=== PATIENT | female | born 1940 | race Caucasian/White ===

== ENCOUNTER 2019-05-14 20:29 | Emergency (ER) | payer MEDICARE, OTHER, SELFPAY ==
[2019-05-14 20:30] VITALS: BP 143/72; PULSE 89; RESP 19; TEMP 37.1; O2SAT 97; BMI 19.1
[2019-05-14 21:01] VITALS: BP 118/71; PULSE 76; RESP 18; O2SAT 98
--- NOTE | 2019-05-14 21:08 | EKG12_ITS ---
Test Reason : PALPATIONS Blood Pressure : / mmHG Vent. Rate : 091 BPM Atrial Rate : 091 BPM P-R Int : 144 ms QRS Dur : 138 ms QT Int : 392 ms P-R-T Axes : 083 039 102 degrees QTc Int : 482 ms Sinus rhythm with occasional Premature ventricular complexes and Premature atrial complexes Left bundle branch block Abnormal ECG Confirmed by DARRELL RUTHERFORD, PETER ([id number]), film or videotape editor ULISES RAMSEY ([id number]) on 05/17/2019 1:05:16 PM Referred By: KIKO Confirmed By:PETER RAMÍREZ MD
[2019-05-14 21:26] LABS: Mean Corp Hgb Conc 32.3 g/dL (32-36); Mean Corpuscular Hgb 27.2 pg (27.0-32.0); Mean Corpuscular Volume 84.5 fL (81-99); Mean Platelet Vol. 9.4 fl (6.2-12.0); Platelet Count 203 K/mm3 (150-450); RBC Distribution Width CV 15.6 % (11.6-14.6); RBC Distribution Width SD 47.8 fl (35.1-43.9); Red Blood Count 3.67 M/mm3 (4.2-5.4); White Blood Count 10.2 K/mm3 (4.4-11.0)
--- NOTE | 2019-05-14 21:27 | ED.DCSUM_ITS ---
History of Present Illness Chief Complaint: Palpitations Informant: Patient, Family Onset: Yesterday Context: Sudden Onset Timing: Intermittent Quality: Irregular heartbeat Location: Chest Current Severity: Presently no palpitations Maximum Severity: Moderate Worsened by: Nothing Relieved by: Nothing Associated Symptoms: No associated chest pain, shortness of breath, nausea vomiting or diaphores Narrative: Patient is an elderly woman who has history of aortic stenosis. She states the aortic stenosis has gotten worse and she has lightheadedness with rising from a sitting position quickly and complains of dyspnea with increased activity. She presents because of palpitations. She denies hot or cold intolerance. She denies hematemesis. Denies black or maroon stool. She denies fever chills. She denies leg pain, swelling or discoloration. Prior similar symptoms: No Recent Illness/Hospitalization: No - Past Medical History (1) History of aortic stenosis Status: Acute (2) History of hypertension Status: Acute Past Medical History - Allergies and Home Meds Allergies/Adverse Reactions: Allergies colestipol Allergy (Verified 05/14/19 20:40) Unknown aspirin Adverse Reaction (Verified 05/14/19 20:40) Upset Stomach doxycycline Adverse Reaction (Verified 05/14/19 20:40) Unknown meloxicam Adverse Reaction (Verified 05/14/19 20:40) Upset Stomach metoclopramide [From Reglan] Adverse Reaction (Verified 05/14/19 20:40) Other niacin Adverse Reaction (Verified 05/14/19 20:40) Other NSAIDS (Non-Steroidal Anti-Inflamma Adverse Reaction (Verified 05/14/19 20:40) Upset Stomach PONCE-2 INHIBITOR Allergy (Uncoded 05/14/19 20:40) Unknown Primary Care Physician: Fadia Reese MD [Primary Care Provider] - Prior records reviewed: No Surgical History: noncontributory Lives: Spouse/ Significant Other Smoking Status: Never smoker Alcohol: None Drugs: None Review of Systems General: Denies: Chills, Fever, Sweats Eyes: Denies: Visual changes - bilaterally, Diplopia ENT: Denies: Rhinorrhea, Sore throat Cardiovascular: Reports: Palpitations. Denies: Chest pain, Heart racing Respiratory: Reports: Dyspnea on exertion - Chronic for 1 year. Denies: Dyspnea, Cough, Orthopnea, Paroxysmal nocturnal dyspnea Gastrointestinal: Denies: Abdominal pain, Nausea, Vomiting, Diarrhea, Melena, Hematochezia Genitourinary: Denies: Dysuria, Hematuria, Frequency Musculoskeletal: Denies: Myalgias, Arthralgias, Neck pain, Back pain, Extremity Pain Skin: Denies: Rash, Wounds Neurological: Denies: Headache, Weakness, Numbness Hematologic: Denies: Easy bruising, Easy bleeding Physical Exam Vital Signs/Narrative: Vital Signs Temp Pulse Resp BP Pulse Ox 05/14/19 21:01 76 18 118/71 98 05/14/19 20:30 98.7 F 89 19 H 143/72 H 97 Inital Vital Signs reviewed: Yes General: Well nourished, Well developed, No Acute Distress Head: Normocephalic, Atraumatic Eyes: Perrl, EOMI ENT: Moist mucous membranes, No rhinorrhea Neck: Supple, Nontender Cardiovascular: Normal S1, Normal S2, Irregular, Murmur Respiratory: No distress, CTA bilaterally, Chest nontender Abdomen: Soft, Nontender, Nondistended, Normal bowel sounds Back: Nontender, Normal Inspection Extremities: Nontender, No edema. Negative for: Calf Tenderness Skin: Normal color, No rash Neurological: Alert, Oriented x3, Cranial nerves II-XII grossly intact, Normal Strength, Normal Sensation Psychological: Normal affect, Normal Mood Diagnostic/Tx/Re-eval Laboratory Results 05/14/19 05/14/19 21:20 21:20 WBC 10.2 RBC 3.67 L Hgb 10.0 L Hct 31.0 L MCV 84.5 MCH 27.2 MCHC 32.3 RDW Std Deviation 47.8 H RDW Coeff of Rosie 15.6 H Plt Count 203 MPV 9.4 Troponin I < 0.015 - Rhythm Strip Rhythm Strip: Sinus Rhythm Rate: 88 Ectopy: PVC(s) - EKG Initial EKG Interpretation: Sinus Rhythm - Jugular rate 91. NH interval 144 ms. QS duration 138 and morphology of the left anterior fascicular block. QT interval 392 ms. [place] to left. There are premature ventricular beats noted. - Medical Decision Making Patient presents with palpitation. She does have frequent PVCs on the monitor. Will obtain basic metabolic panel to assess electrolytes. Since symptoms started yesterday we will obtain the EKG as well as troponin. ED Disposition - Plan for ED Patient: Disposition: Home or Assisted Living Diagnosis: Ventricular premature beats, Anemia, unspecified Instructions: Premature Ventricular Contractions Referrals: Fadia Reese MD [Primary Care Provider] - Anjum Henriquez MD [STAFF PHYSICIAN] - 1-2 Weeks
[2019-05-14 21:59] VITALS: BP 122/71; PULSE 95; RESP 14; O2SAT 97
[2019-05-14 22:03] VITALS: BP 117/65; PULSE 87; RESP 17; O2SAT 98
== END 2019-05-14 22:04 | disposition home or self-care (01) ==
PROVIDERS: Emergency Provider Emergency Medicine; Family Provider Internal Medicine; PCP Internal Medicine
DX: I49.3 Ventricular premature depolarization (principal); D64.9 Anemia, unspecified; I35.0 Nonrheumatic aortic (valve) stenosis; I44.4 Left anterior fascicular block
CPT/HCPCS: 84484; 85027; 93005; 99285; A4216

== ENCOUNTER 2020-02-27 18:12 | Inpatient (IN) | payer MEDICARE, OTHER, SELFPAY ==
[2020-02-27 18:12] VITALS: BP 128/67; PULSE 83; RESP 16; TEMP 36.3; O2SAT 100; BMI 16.2
--- NOTE | 2020-02-27 18:28 | CT_ITS ---
STUDY: CT ABDOMEN AND PELVIS WITH CONTRAST REASON FOR EXAM: Female, 80 years old. LUQ PAIN X 2 WEEKS, AORTIC AND MITRAL VALVE REPLACED DECEMBER 2019, HX WHIPPLE SX RADIATION DOSAGE (If Supplied By Facility): CTDIvol = ( 10.36 ) mGy, DLP = ( 477.67 ) mGycm TECHNIQUE: Transaxial images were obtained from the dome of the diaphragm to the symphysis pubis without oral contrast. Oral and amp; IV Gastrografin and amp; 100mL Isovue-300 was administered. Sagittal and coronal images were reconstructed. Individualized dose optimization techniques were used for this CT. COMPARISON: None. FINDINGS: Soft tissue density wedgelike pleural-based at the right base measures up to 1.8 cm. 2 mm nodule left base. The visualized portions of the heart demonstrate hardware in place. Extensive pneumobilia. There are surgical clips in the gallbladder fossa consistent with a prior cholecystectomy. Normal spleen. Pancreatic tail is unremarkable. Normal bilateral adrenal glands. Bilateral hydronephrosis and a markedly distended urinary bladder. Markedly distended stomach. The duodenum and proximal jejunum is also markedly distended. A high density linear object is seen within the lumen of the proximal small bowel and distal small bowel and colon appear relatively decompressed. Question pneumatosis within the distal small bowel. Moderate stool burden. There is non-visualization of the appendix. There is diffuse atherosclerotic calcification of the abdominal aorta with elongation and tortuosity, but without a demonstrated aneurysm. Normal inferior vena cava. Normal retroperitoneum. Distended urinary bladder. There is atrophy of the uterus. Normal abdominal wall. Normal osseous structures. CT/Abdomen/Pelvis WITH Contrast IMPRESSION: Findings concerning for high-grade small bowel obstruction with associated possible pneumatosis. Extensive pneumobilia. Question hardware/stent displaced within the small bowel lumen. Lung base findings including an area of solid nodular density measuring up to 1.8 cm recommend correlation with any prior imaging and or follow-up dedicated chest CT for further evaluation. Findings discussed with Dr. Marcano by Dr. Moraes on 02/27/2020 9:29 PM via telephone. Electronically Signed: Gerard Moraes, at 21:31 EDT Tel , Service support ,
--- NOTE | 2020-02-27 18:30 | EKG12_ITS ---
Test Reason : ABD PAIN Blood Pressure : / mmHG Vent. Rate : 085 BPM Atrial Rate : 085 BPM P-R Int : 142 ms QRS Dur : 136 ms QT Int : 404 ms P-R-T Axes : 017 021 233 degrees QTc Int : 480 ms Sinus rhythm with occasional and consecutive Premature ventricular complexes and Fusion complexes Left bundle branch block Abnormal ECG Confirmed by DARRELL RUTHERFORD, PETER ([id number]), assignment editor JAYMIE ZEPEDA ([id number]) on 02/29/2020 11:19:42 AM Referred By: RU Confirmed By:PETER RAMÍREZ MD
[2020-02-27 18:58] LABS: Absolute Lymphocyte Count 1.06 X10^3/uL (0.83-4.51); Absolute Neutrophil Count 6.9 X10^3/uL (2.0-7.7); Basophil# 0.02 X10^3/uL; Basophil% 0.2 % (0-1); Eosinophils% 1.1 % (0-5); Hematocrit 37.9 % (37-47); Lymphocyte # 1.06 X10^3/ul (4.0); Mean Corp Hgb Conc 31.7 g/dL (32-36); Mean Corpuscular Hgb 29.1 pg (27.0-32.0); Mean Corpuscular Volume 91.8 fL (81-99); Mean Platelet Vol. 9.2 fl (6.2-12.0); Monocyte# 0.79 X10^3/uL; Monocyte% 8.9 % (0-10); NRBC Flagged by Analyzer 0 % (0-5); Neutrophil # 6.85 X10^3/uL (2.7-7.7); Neutrophil % 77.3 % (47-70); Platelet Count 344 K/mm3 (150-450); RBC Distribution Width CV 14.5 % (11.6-14.6); Red Blood Count 4.13 M/mm3 (4.2-5.4); White Blood Count 8.9 K/mm3 (4.4-11.0)
--- NOTE | 2020-02-27 19:03 | ED.DCSUM_ITS ---
- ER Visit Summary Date of Service: 02/27/20 Chief Complaint: [Abdominal pain] History of Present Illness: The patient is a 80 F [presents to the emergency department with complaint of abdominal pain that started 2 weeks ago when she has had the pain off and on. The pain will usually subside after couple of hours. Today the pains been continuous and will go away. She describes it as upper abdomen and left upper quadrant. She is had no appetite today. She has had vomiting x3. She denies urinary symptoms. Last bowel movement was earlier this morning. She denies any blood in her stool or black tarry stools. She denies urinary symptoms. She is had no fever. Patient states that she had recent surgery at [facility] to have her aortic valve replaced and had a mitral valve repair and that was 2 months ago. Patient's had prior appendectomy, cholecystectomy, and a Whipple procedure. Patient with history of hypertension, high cholesterol, and A. fib. She is currently on Eliquis as well as Plavix. Patient currently rates her pain a 5 or 6 out of 10.] Physical Examination: [HEENT-PERRLA, EOMI. Cranial nerves II through XII grossly intact. TMs clear. Mucous membranes moist. No adenopathy. Cardiovascular-regular rate and rhythm without murmur or ectopy Lungs-clear to auscultation, chest wall stable without crepitus or subcu emphysema Abdomen-normoactive bowel sounds, soft. Patient has tenderness palpation over the epigastric region as well as the left upper quadrant with some guarding. There is no rebound, rigidity, or peritoneal signs. Extremities-intact ?4, normal range of motion, normal pulses, atraumatic] Test Results: [EKG obtained arrival shows sinus rhythm with a ventricular rate of 85 bpm with occasional PVCs. CBC with differential showed a white count 8.9, hemoglobin 12, hematocrit 38, platelets 344. Chemistries unremarkable other than a sodium 130. LFTs were unremarkable other than elevated alk phos of 181. Lipase was 41. Lactate was 1.2. Troponin was less than 0.015. CT scan of the abdomen pelvis with IV and p.o. contrast was ordered which showed findings concerning for high-grade small bowel obstruction with associated possible pneumatosis. Extensive pneumobilia. Question hardware/stents placed within the small bowel lumen. Lung base findings including an area solid nodular density measuring up to 1.8 cm recommend correlation with prior imaging and or follow-up dedicated CT chest.] Emergency Department Course and Treatment: [IV line was damaged. Patient was medicated with Zofran. Patient was medicated morphine and Phenergan for continu ed discomfort. Case was discussed with general surgeon on-call Dr. Jenn Dee. I was asked to admit patient to the hospitalist. An NG tube was placed to low intermittent suction.] Treatment Plan: [Admit] Disposition: [Admit] Impression: [Abdominal pain Small bowel obstruction Right lower lobe lung density-etiology uncertain] This note was generated with [employer] dictation software. It may contain incorrect words, spelling, and punctuation that were not noted in review of the chart prior to signing I was asked to admit patient to hospitalist. ED Disposition - Plan for ED Patient: Referrals: Fadia Reese MD [STAFF PHYSICIAN] -
[2020-02-27] MEDS: Ondansetron 4 MG/2 ML Vial IV (19:06)
[2020-02-27] MEDS: 0.9% Normal Saline 1,000 ML 125 ML IV (19:06)
[2020-02-27 19:20] LABS: ALB/GLOB Ratio 0.8 RATIO (0.9-2.4); AST(SGOT) 26 U/L (15-37); Alanine Aminotransfer ALT/SGPT 25 U/L (13-56); Albumin, Serum 3.5 g/dL (3.2-5.0); Alkaline Phosphatase 181 U/L (45-117); Anion Gap 6 (5-15); BUN 17 mg/dL (7-18); BUN/Creat Ratio 21.7 RATIO (10-20); Calcium,Total 9.5 mg/dL (8.5-10.1); Chloride 94 mmol/L (98-107); Creatinine, Serum 0.78 mg/dL (0.55-1.02); EST Glomerular Filtration Rate 75 mL/min (>60); Est Glom Filt Rate - Afr Amer 91 mL/min (>60); Estimated Creatinine Clearance 32.01 ml/min; Globulin 4.2 g/dL (2.2-4.2); Glucose 96 mg/dL (74-106); Lipase 41 U/L (73-393); Potassium 3.7 mmol/L (3.5-5.1); Protein, Total 7.7 g/dL (6.4-8.2); Sodium Level 130 mmol/L (136-145)
[2020-02-27] MEDS: Morphine 4 MG/ML Syringe IV (19:30)
[2020-02-27] MEDS: proMETHazine 25 MG/ML Syringe 6.25 MG IV (19:30)
[2020-02-27 19:50] LABS: Lactic Acid 1.2 mmol/L (0.4-1.9)
[2020-02-27 20:41] LABS: Bacteria 0 SEEN /hpf (None Seen); Mucous, Urine 0 SEEN /hpf (<or=2+); Red Blood Cells-Urine 0 SEEN /hpf (0-5); White Blood Cells 0 SEEN /hpf (0-5)
[2020-02-27 20:47] LABS: Color, Urine Straw (Yellow); Glucose, Dipstick Normal (Normal); Ketone-Dipstick Negative (Negative); Leukocyte Esterase-Dipstick Negative /ul (Negative); Nitrite-Dipstick Negative (Negative); Occult Blood-Urine Negative /ul (Negative); Protein-Dipstick Negative (Negative); Urine Bilirubin Dipstick Negative (Negative); Urine Clarity Clear (Clear); Urine Urobilinogen Normal (Normal)
[2020-02-27 21:19] LABS: Squamous Epithelial Cells - UA 0-5 SEEN /hpf (5-10)
--- NOTE | 2020-02-27 21:43 | PCM.HP.STD ---
Problem List (1) SBO (small bowel obstruction) Status: Acute (2) History of aortic stenosis Status: Acute (3) History of hypertension Status: Acute History of Present Illness Date of Admission: 02/27/20 Chief Complaint: abdominal pain The patient is a 80 year old F with a significant history of aortic stenosis status post aortic valve replacement with tissue; mitral valve repair; atrial fibrillation; pancreatic cyst status post Whipple procedure; appendectomy; and cholecystectomy who presents to the emergency department with 2-week history of progressively worsening left lower quadrant abdominal pain. Her pain is excruciating. Her pain is nonradiating. She describes her pain as cramps. She denies any aggravating or ameliorating factors to the pain. Associated with her symptoms is nausea and vomiting. Her last bowel movement was on the same day of presentation. Abdomen and pelvis CT at emergency department showed high-grade small bowel obstruction with associated possible pneumatosis and extensive pneumobilia. Past Medical History Medical History: Medical History (Last Reviewed 02/28/20 @ 01:[address] Noe Richmond MD) Aortic stenosis I35.0 Allergies colestipol Allergy (Verified 02/27/20 18:15) Unknown aspirin Adverse Reaction (Verified 02/27/20 18:15) Upset Stomach doxycycline Adverse Reaction (Verified 02/27/20 18:15) Unknown meloxicam Adverse Reaction (Verified 02/27/20 18:15) Upset Stomach metoclopramide [From Reglan] Adverse Reaction (Verified 02/27/20 18:15) Other niacin Adverse Reaction (Verified 02/27/20 18:15) Other NSAIDS (Non-Steroidal Anti-Inflamma Adverse Reaction (Verified 02/27/20 18:15) Upset Stomach PONCE-2 INHIBITOR Allergy (Uncoded 02/27/20 18:15) Unknown Home Medications: Ambulatory Orders Medication Instructions Recorded Albuterol Inhaler [Ventolin Hfa 2 puff INHALATION Q4H PRN PRN 02/27/20 (SP)] Apixaban [Eliquis] 5 mg PO BID 02/27/20 Brinzolamide/Brimonid Tart 1 drp RIGHT EYE BID 02/27/20 [Simbrinza 1%-0.2% Eye Drops] Calcium Carbonate [Calcium] 600 mg PO BID 02/27/20 Cholecalciferol (VIT D3) [Vitamin 2,000 unit PO DAILY 02/27/20 D] Clopidogrel Bisulfate [Clopidogrel] 75 mg PO DAILY 02/27/20 Ferrous Sulfate 2 tab PO BID 02/27/20 Fluticasone/Salmeterol [Advair 1 puff IH BID 02/27/20 100-50 Diskus] Lipase/Protease/Amylase [Charo Easley 2 ea PO TID 02/27/20 36,000 Units Capsule] Metoprolol Tartrate 50 mg PO BID 02/27/20 Montelukast [Singulair] 10 mg PO DAILY 02/27/20 Multivitamin with Minerals 1 ea PO DAILY 02/27/20 [Multiple Vitamin] Nitroglycerin 0.4 mg SL PRN PRN 02/27/20 Pantoprazole Sodium [Protonix] 40 mg PO BID 02/27/20 Pimecrolimus 1 applicatio TP BID PRN 02/27/20 Rosuvastatin Calcium 10 mg PO DAILY 02/27/20 metroNIDAZOLE 0.75% [Metrogel] 70 applic TOPICAL BID 02/27/20 Surgical History: appendectomy, cholecystectomy, - - 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 Smoking Status: Never smoker Alcohol: None - *Family History Maternal History Items: Heart Disease Paternal History Items: Stroke Review of Systems Constitutional: Reports: Anorexia. Denies: Chills, Fever, Weight Change HEENT: Denies: Head Aches, Sinus Congestion, Sinus Drainage Cardiovascular: Denies: Chest Pain, Palpitations Respiratory: Denies: Cough, Shortness of breath at rest, Sputum production Gastrointestinal: Reports: Abdominal Pain, Nausea, Vomiting Genitourinary: Denies: Dysuria Musculoskeletal: Denies: Joint Pain, Joint Tenderness Skin: Denies: Rash, Wounds Neurological: Denies: Numbness, Tingling, Focal weakness Psychiatric: Denies: Anxiety, Depression, Homicidal Ideations, Suicidal Ideations Hematologic/ Lymphatic: Denies: Easy Bruising, Easy Bleeding VTE Information - Inpt Only VTE Present on Admission: No VTE Mechan Device Prophylaxis: SCD's VTE Pharm Prophylaxis ordered?: No Patient Problems: Active and Suspected Problems (Last Reviewed 02/27/20 @ 22:[address] Noe Richmond MD) SBO (small bowel obstruction) (Acute) - Physical Exam Vitals/I&O's: Vital Signs Temp Pulse Resp BP Pulse Ox 97.4 F L 83 16 128/67 H 100 02/27/20 18:12 02/27/20 18:12 02/27/20 18:12 02/27/20 18:12 02/27/20 18:12 Oxygen Delivery Method Room Air Weight: 44.452 kg Body Mass Index (BMI) 16.2 Intake and Output for Last 24 Hours 02/25/20 02/26/20 02/27/20 23:59 23:59 23:59 Intake Total 1000 / 999 Balance 1000 / 999 General: Alert, Oriented x3, Cooperative HEENT: Atraumatic, PERRLA, EOMI, Normocephalic Neck: Supple, No JVD, Trachea Midline Lungs: Clear to auscultation, Normal air movement, No rhonchi, No wheeze, No rales Cardiovascular: Regular rate, Regular Rhythm, Normal S1, Normal S2, No murmurs Abdomen: Bowel Sounds Present, Soft, Non Tender Extremities: No edema, Capillary Refill Less than 3 Seconds Skin: No rashes, No breakdown Musculoskeletal: No Tenderness to Palpation of Joints or Extremities Neurological: Cranial nerves II-XII grossly intact Psych/Mental Status: Normal Affect, Appropriate Laboratory Results 02/27/20 18:42: WBC 8.9, RBC 4.13 L, Hgb 12.0, Hct 37.9, MCV 91.8, MCH 29.1, MCHC 31.7 L, RDW Std Deviation 48.0 H, RDW Coeff of Rosie 14.5, Plt Count 344, MPV 9.2, Immature Gran % (Auto) 0.500, Neut % (Auto) 77.3 H, Lymph % (Auto) 12.0 L, Graham % (Auto) 8.9, Eos % (Auto) 1.1, Baso % (Auto) 0.2, Absolute Neuts (auto) 6.9, Absolute Lymphs (auto) 1.06, Nucleated RBC % 0 02/27/20 18:42: Sodium 130 L, Potassium 3.7, Chloride 94 L, Carbon Dioxide 30.0, Anion Gap 6, BUN 17, Creatinine 0.78, Estim Creat Clear Calc 32.01, Est GFR (MDRD) Af Amer 91, Est GFR (MDRD) Non-Af 75, BUN/Creatinine Ratio 21.7 H, Glucose 96, Calcium 9.5, Total Bilirubin 0.50, AST 26, ALT 25, Alkaline Phosphatase 181 H, Troponin I < 0.015, Total Protein 7.7, Albumin 3.5, Globulin 4.2, Albumin/Globulin Ratio 0.8 L, Lipase 41 L 02/27/20 19:15: Lactic Acid 1.2 02/27/20 20:36: Urine Color Straw, Urine Clarity Clear, Urine pH 7.0, Ur Specific Lucas 1.010, Urine Protein Negative, Urine Glucose (UA) Normal, Urine Ketones Negative, Urine Occult Blood Negative, Urine Nitrite Negative, Urine Bilirubin Negative, Urine Urobilinogen Normal, Ur Leukocyte Esterase Negative, Urine RBC 0 SEEN, Urine WBC 0 SEEN, Ur Squamous Epith Cells 0-5 SEEN, Urine Bacteria 0 SEEN, Urine Mucus 0 SEEN Current Medications Sodium Chloride () 1,000 mls @ 125 mls/hr IV .Q8H DEMETRIO Last Infusion: 02/27/20 20:39 Dose: Infused Documented by: Assessment/Plan All Active Problems (Last Reviewed 02/27/20 @ 22:[address] Noe Richmond MD) History of aortic stenosis (Acute) History of hypertension (Acute) SBO (small bowel obstruction) (Acute) The patient is a 80 year old F with a significant history of aortic stenosis status post aortic valve replacement with tissue; mitral valve repair; atrial fibrillation; pancreatic cyst status post Whipple procedure; appendectomy; and cholecystectomy who presents to the emergency department with 2-week history of progressively worsening left lower quadrant abdominal pain; nausea and vomiting and found to have abdominal and pelvis CT findings of high-grade small bowel obstruction with associated possible pneumatosis and extensive pneumobilia. Small bowel obstruction Emergency department doctor to place NG tube at the ED. NG tube to low intermittent suction. Keep n.p.o. Supportive treatment with lactated Ringer's with potassium. PRN morphine IV and antiemetics with Zofran. General surgery consult. Lung Nodule 1.8 cm at the right base; 2 mm left base per CT of abdomen and pelvis. Per patient previous chest x-ray at [facility] showed lung nodule. Will obtain records Paroxysmal A. fib Reportedly she developed atrial fibrillation after open heart surgery where aortic valve was replaced and mitral valve was repaired. Hold Eliquis for now. SR with LBBB and PVC on presentation Medsurg with Telemetry. Hypertension Blood pressure is within goal for age. Hold home metoprolol. PRN labetalol ordered. Trend blood pressures. DVT prophylaxis SCD ordered. 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 Hold Plavix for now. Inpatient E&M: [id number] Init Hosp L3
[2020-02-27] MEDS: Lidocaine 4% 5 ML Ampul 2 ML INHALATION (21:57)
--- NOTE | 2020-02-27 22:19 | PCM.CONS.B ---
- Consult Date of Consult: 02/27/20 - Reason for Consult Chief Complaint: abdominal pain, nausea and emesis History of Present Illness: 80 y/o WF presents with two week history of abdominal pain, but recently developed emesis which prompted evaluation at [facility] ED. She states that she had a bowel movement today, but does not recall when she last passed flatus. Has had several bouts of emesis today. Pain described in left lateral aspect of abdomen, severe, cramping. Patient notes that she had a previous bowel obstruction in the past after her Whipple procedure. In the ED - WBC 8.9K, with left shift of differential, sodium is 130, alk phos is 181, lactic acid is normal CT scan obtained: Findings concerning for high-grade small bowel obstruction with associated possible pneumatosis. Extensive pneumobilia. A high density linear object is seen within the lumen of the proximal small bowel and distal small bowel and colon appear relatively decompressed. Question pneumatosis within the distal small bowel. Question hardware/stent displaced within the small bowel lumen. Lung base findings including an area of solid nodular density measuring up to 1.8 cm recommend correlation with any prior imaging and or follow-up dedicated chest CT for further evaluation. PAST MEDICAL HISTORY ? Acute, but ill-defined, cerebrovascular disease 12/2005 ? Possible TIA ? Allergy to poison christy 05/30/2012 ? Aortic stenosis 03/29/2015 ? Aortic valve disorders ? ? Asthma 07/16/2010 ? Benign neoplasm of stomach ? ? Bursitis of hip ? ? Congenital pes planus 04/17/2012 ? Corneal erosion ? ? right eye ? Cystocele, midline 11/04/2008 ? Disorder of bone and cartilage, unspecified ? ? Essential hypertension 07/29/2016 ? Female stress incontinence 11/04/2008 ? Fibromuscular dysplasia (HCC) ? ? HOCM (hypertrophic obstructive cardiomyopathy) (HCC) 01/01/2020 ? History: preop Assessment: 12/31/2019: AVR (21 Inspiris), MVR, Septal myectomy, papillary muscle relocation Plan: ASA and BP control. Echo with amyl nitrate -16: EF 75%, LV and RV normal, no MR, TR trace, no AR, no pericardial effusion ? Hyperlipidemia ? ? Insomnia, unspecified ? ? IPMN (intraductal papillary mucinous neoplasm) 10/29/2016 ? s/p Whipple procedure ? Irritable bowel syndrome ? ? Mastodynia ? ? Nonrheumatic aortic valve stenosis 03/29/2015 ? History: severe preop Assessment: 12/31/2019: AVR (21 Inspiris), MVR, Septal myectomy, papillary muscle relocation Plan: ASA. Echo with amyl nitrate 3-16: EF 75%, LV and RV normal, no MR, TR trace, no AR, no pericardial effusion ? Nonrheumatic mitral valve regurgitation 01/01/2020 ? History: 1-2+ MR preop Assessment: 12/31/2019: AVR (21 Inspiris), MVR, Septal myectomy, papillary muscle relocation Plan: ASA. Echo with amyl nitrate 3-16: EF 75%, LV and RV normal, no MR, TR trace, no AR, no pericardial effusion ? Orthostatic hypotension 04/21/2006 ? POTS ? Osteoporosis 01/26/2016 ? Other and unspecified hyperlipidemia ? ? Other malaise and fatigue ? ? Since on Metropolol ? Pancreatic cyst 07/29/2016 ? Plantar fasciitis ? ? PMH - PAST MEDICAL HISTORY OF 03/2007 ? dry eye, carneal erosion ? PMH - PAST MEDICAL HISTORY OF ? ? inflammation of the iris ? 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 Usually on the superior lip accompanying URI. ? Spinal stenosis, lumbar region, without neurogenic claudication 07/28/2009 ? 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 h/o obstructive jaundice post Whipple ? Symptomatic menopausal or female climacteric states ? ? Urge incontinence 11/04/2008 ? Urinary tract bacterial infections August 2009,April ? Two urinary tract infections ? Uveitis ? ? left eye ? PAST SURGICAL HISTORY ? APPENDECTOMY ? 1958 ? CHOLANGIOGRAM PERC (PTHC) INJECT ? 12/10/2016 ? postoperative obstructive jaundice ? COLONOSCOP W/ OR W/O [facility] SPEC ? 07/27/15 ? Colonoscopy ? COLONOSCOPY ? 11/07/2004 ? COLONOSCOPY ? 12/08/2019 ? D&C, DIAG AND/OR THERAPEUTIC ? 1969 ? Dilation & curettageX2 ? EGD W/O OR W/BRUSH/WASH ? 07/09/2011 ? EGD X4 . 2000;2000;2005. ? EGD W/O OR W/BRUSH/WASH ? 08/09/2019 ? EGD ? EYE SURGERY PROCEDURE ? 2010 ? b/l eye tubes in tear ducts ? LEFT HEART CATH,PERCUTANEOUS ? 10/30/2015 ? Cardiac cath, L heart ? LIGATE FALLOPIAN TUBE ? 1975 ? Tubal ligation ? PANCREATECTOMY ? 12/02/2016 ? subtotal,duodenectomy,choledochoenterostomy, duodenojejunostomy, pancreatojejunostomy ? PAST SURGICAL HISTORY OF ? 2003 ? Heart Cath w/o stenting ? PAST SURGICAL HISTORY OF ? 02/1977 ? retinal repair- buckle. ? PILONIDAL CYST/SINUS EXCISION ? 1957 ? REMOVAL GALLBLADDER ? 09/1973 ? REMOVAL OF TONSILS,<12 Y/O ? 1946 ? REMV LENS MATERIAL,PHACOFRAGMT ? 02/2005 ? Cataract Extraction, bilateral. 08/1994;02/2005 ? VULVA/PERINE LOOP ELECTRO EXCIS ? 01-01-96 ? LEEP of cx - cervicitis only ? FAMILY HISTORY ? Heart Mother? age 88. ? Hypertension Mother ? ? Heart Failure Mother ? ? Allergies Mother? Probable asthma. ? other (Carotid bruit) Mother ? ? Heart Father? stroke/ at age 92 ? Stroke Father ? ? Ischemic Heart Disease Brother ? ? Cancer Sister? Ovarian/non-mutant??BRCA 1 &2 neg ? Cancer Paternal Aunt ? Ovarian ? Allergies Other? Alot of allergy in my family. ? Asthma No Family History ? ? SOCIAL HISTORY Tobacco Use ? Smoking status: Never Smoker ? Smokeless tobacco: Never Used Substance Use Topics ? Alcohol use: No ? Drug use: No ? CURRENT MEDICATIONS ? rosuvastatin (CRESTOR) 10 mg tablet Take 1 tablet by mouth once daily. ? metoprolol tartrate, short acting, (LOPRESSOR) 50 mg tablet Take 1 tablet by mouth every 12 hours. ? apixaban (ELIQUIS) 5 mg tab(s) Take 1 tablet by mouth twice daily. ? calcium carbonate/vitamin D3 (CALCIUM 600 + D,3, ORAL) Take 1 tablet by mouth twice daily. ? montelukast (SINGULAIR) 10 mg tablet Take 1 tablet by mouth once daily. ? pantoprazole DR (PROTONIX) 40 mg tablet Take 1 tablet by mouth twice daily. ? acetaminophen (TYLENOL) 325 mg tablet Take 1-2 tablets by mouth every 6 hours as needed for Pain (mild pain). Do not take more than 4G of acetaminophen in ? senna-docusate (SENNA-S) 8.6-50 mg per tablet Take 1 tablet by mouth twice daily as needed for Constipation. ? brinzolamide-brimonidine 1%-0.2 % Ophth Susp Use 1 Drop in the right eye twice daily. ? pimecrolimus (ELIDEL) 1 % cream Apply to affected area twice daily as needed (for rash on face). ? clopidogrel (PLAVIX) 75 mg tablet Take 1 tablet by mouth once daily. ? metroNIDAZOLE (METROGEL) 0.75 % Topical Gel Apply 1 application to affected area twice daily. ? ferrous sulfate 325 mg (65 mg iron) tablet Take 1 tablet by mouth daily with breakfast. (Patient taking differently: Take 325 mg by mouth once daily.) ? fluticasone-salmeterol (ADVAIR DISKUS) 100-50 mcg/dose dsdv Inhale 1 puff twice daily; rinse and gargle mouth with water after each use ? albuterol HFA (VENTOLIN HFA) 90 mcg/actuation inhaler Inhale 2 Puffs as instructed every 4 hours as needed for Wheezing/Shortness of Breath. ? Cholecalciferol, Vitamin D3, (VITAMIN D-3) 2,000 unit cap Take 1 capsule by mouth once daily. ? MULTIVITAMIN TABLET Take one(1) tablet daily. ? ALLERGIES ? Aspirin GI Upset ? Clams Positive allergy test ? Colestipol Intolerance?muscle pain ? Doxycycline GI Upset ? Meloxicam GI upset ? Niacin Intolerance?increased heasrt rate,excessive flushing ? Nsaids (Non-Steroid* GI Upset ? Reglan [Metoclopram* Other: See Comments Tongue muscle spasms ? Road Tar [Other] Cough ? Smoke Cough cigarette and wood smoke ? Tuna Oil Positive allergy test ? Wellco [Other] Intolerance muscle pain Review of Systems: General - denies fevers Cardiovascular denies chest pain Pulmonary denies shortness of breath, denies coughing up blood Gastrointestinal as per HPI Neurological denies seizures Genitourinary denies burning with urination, denies blood in urine Hematological on eliquis, denies spontaneous/prolonged bleeding Skin denies open non healing wounds Musculoskeletal Endocrine denies diabetes Psychological has dementia, denies hallucinations Physical examination: Vital signs Temp 97.4F BP 128/67 RR 16 HR 83 General WD/WN WF in no apparent distress, alert and oriented, not septic appearing HEENT Normocephalic. EOM intact with sclera clear and no icterus noted. Neck is supple with no jugular venous distention noted. Trachea is midline. Lungs normal breath sounds . No rales/rhonchi/wheezing noted. No labored breathing noted, such as retractions. No cough heard. Heart irregular - atrial fib. Abdomen soft and benign. hypoactive bowel sounds, patient states minimal pain at present. Extremities no calf tenderness or swelling noted. No pitting edema noted. . Genitourinary/Rectal deferred Skin normal skin integrity. Neurological non focal Psychological normal affect, patient is calm and appropriate Impression: small bowel obstruction Discussion/Plan: I have personally reviewed CT scans. This is a probable gastric outlet obstruction (partial versus food obstruction versus stricture), possibly at anastomosis of [place] limb Patient had biliary stent placed after Whipple for post procedure stenosis, this probably migrated I suspect distal small bowel pneumatosis is faecalization of contents of distal small bowel, doubt this represents necrosis of bowel given benign abdominal examination, normal lactic acid and normal WBC and normal temperature. Pneumobilia is normal s/p Whipple procedure. Patient has relatively benign abdominal examination - Continue NG tube decompression and IV hydration I have answered all questions to the patient?s satisfaction and the patient has no further questions - will follow patient with you
[2020-02-27 22:21] VITALS: BP 122/93; PULSE 80; RESP 18; O2SAT 98
--- NOTE | 2020-02-27 22:22 | RAD_ITS ---
STUDY: X-RAY - ABDOMEN/PELVIS REASON FOR EXAM: Female, 80 years old. NG PLACEMENT TECHNIQUE: Single view of the upper abdomen COMPARISON: 07/04/2011. FINDINGS: Lung bases demonstrate scarring. There is an unremarkable bowel gas pattern. There is no demonstrated free abdominal air. Contrast material is noted residually within the bowel. NG tube terminates in the stomach. Cardiac hardware and median sternotomy wires. Normal soft tissue structures. Normal visualized osseous structures. RAD/Abdomen Single View (Portable) IMPRESSION: Enteric tube terminates in the stomach. Electronically Signed: Gerard Moraes, at 23:59 EDT Tel , Service support ,
[2020-02-27 22:38] VITALS: BP 122/93; PULSE 80; RESP 18; TEMP 36.3; O2SAT 98
[2020-02-27 22:51] VITALS: BMI 17.3
[2020-02-27 23:00] VITALS: BP 144/65; PULSE 81; RESP 18; TEMP 36.5; O2SAT 100; BMI 17.4
[2020-02-27 23:04] VITALS: PULSE 89
[2020-02-28] VITALS (8 sets, daily range): BP systolic 120–157; BP diastolic 58–69; PULSE 78–99; RESP 16–18; TEMP 36.9–37.2; O2SAT 98–100
--- NOTE | 2020-02-28 05:20 | RAD_ITS ---
STUDY: X-RAY - ABDOMEN/PELVIS REASON FOR EXAM: Female, 80 years old. Abdominal pain, bowel obstruction. TECHNIQUE: AP supine abdomen. COMPARISON: February 27, 2020. CT abdomen and pelvis February 27, 2020. FINDINGS: Normal visualized lung bases. Nasogastric tube curved in the stomach with the tip in the superior aspect of the gastric fundus unchanged. 6.5 cm thin curvilinear high attenuation object medial aspect the right mid abdomen which which in correlation with the CT suggests a stent which has migrated distally and is now located within the bowel. There is an unremarkable bowel gas pattern. There is no demonstrated free abdominal air. The visualized liver, spleen and kidneys are grossly normal in size and morphology. Normal soft tissue structures. Normal visualized osseous structures. Surgical clips right upper quadrant. Sternal wires are present. RAD/Abdomen Single View (Portable) IMPRESSION: Nonspecific bowel gas pattern without evidence of obstruction. Stable position of enteric tube with the tip in the gastric fundus. Probable migrated stent, right mid abdomen also visualized on the recent CT. Electronically Signed: Krishan Hester MD at 5:54 EDT , Service support ,
[2020-02-28 06:06] LABS: Hematocrit 34.9 % (37-47); Hemoglobin 11.1 g/dL (12.0-15.0); Mean Corp Hgb Conc 31.8 g/dL (32-36); Mean Corpuscular Hgb 29.3 pg (27.0-32.0); Mean Corpuscular Volume 92.1 fL (81-99); Platelet Count 247 K/mm3 (150-450); RBC Distribution Width CV 14.5 % (11.6-14.6); RBC Distribution Width SD 48.1 fl (35.1-43.9); Red Blood Count 3.79 M/mm3 (4.2-5.4)
[2020-02-28 06:27] LABS: Anion Gap 6 (5-15); BUN 12 mg/dL (7-18); BUN/Creat Ratio 20.6 RATIO (10-20); Calcium,Total 8.6 mg/dL (8.5-10.1); Chloride 102 mmol/L (98-107); Creatinine, Serum 0.58 mg/dL (0.55-1.02); EST Glomerular Filtration Rate 106 mL/min (>60); Est Glom Filt Rate - Afr Amer 128 mL/min (>60); Estimated Creatinine Clearance 33.56 ml/min; Glucose 84 mg/dL (74-106); International Normalized Ratio 1.2; Partial Thromboplast Time 33.3 Seconds (24.1-36.2); Potassium 3.9 mmol/L (3.5-5.1); Prothrombin Time (Protime)PT. 14.2 SECONDS (11.7-14.9); Sodium Level 133 mmol/L (136-145)
[2020-02-28] MEDS: Heparin Injection (Vial) 5,000 UNIT/ML VIAL 3500 UNIT IV (06:32)
[2020-02-28] MEDS: HEPARIN/D5w 25,000 UNITS 25,000 UNITS/250 ML IV.SOLN. 7 UNITS IV (06:34)
[2020-02-28] MEDS: Albuterol 2.5 MG/3 ML VIAL.NEB. INHALATION ×2 (06:41→13:14)
[2020-02-28] MEDS: Budesonide Respules 0.5 MG/2 ML AMPUL.NEB. INHALATION (06:41)
--- NOTE | 2020-02-28 10:06 | PN.SURG_ITS ---
Patient Problems: Active and Suspected Problems (Last Reviewed 02/28/20 @ 01:[address] Noe Richmond MD) SBO (small bowel obstruction) (Acute) Subjective: patient states that she feels much improved, minimal abdominal pain - left lower quadrant, she alludes that this has been going on for greater than a year - Physical Exam Vitals/I&O's: Vital Signs Temp Pulse Resp BP Pulse Ox 98.4 F 82 18 157/63 H 100 02/28/20 04:44 02/28/20 06:41 02/28/20 06:41 02/28/20 04:44 02/28/20 04:44 Oxygen Delivery Method Room Air Weight: 46.6 kg Body Mass Index (BMI) 17.3 Intake and Output for Last 24 Hours 02/26/20 02/27/20 02/28/20 23:59 23:59 23:59 Intake Total 1000 / 1110 863.75 / 863.75 Output Total 750 / 750 Balance 1000 / 1110 113.75 / 113.75 General: Alert, Oriented x3 Oral: Moist Mucosa Neck: Supple Lungs: Normal air movement Abdomen: Soft, Non-Distended, Hypoactive Bowel Sounds Laboratory Results 02/27/20 18:42: WBC 8.9, RBC 4.13 L, Hgb 12.0, Hct 37.9, MCV 91.8, MCH 29.1, MCHC 31.7 L, RDW Std Deviation 48.0 H, RDW Coeff of Rosie 14.5, Plt Count 344, MPV 9.2, Immature Gran % (Auto) 0.500, Neut % (Auto) 77.3 H, Lymph % (Auto) 12.0 L, Teller % (Auto) 8.9, Eos % (Auto) 1.1, Baso % (Auto) 0.2, Absolute Neuts (auto) 6.9, Absolute Lymphs (auto) 1.06, Nucleated RBC % 0 02/27/20 18:42: Sodium 130 L, Potassium 3.7, Chloride 94 L, Carbon Dioxide 30.0, Anion Gap 6, BUN 17, Creatinine 0.78, Estim Creat Clear Calc 32.01, Est GFR (MDRD) Af Amer 91, Est GFR (MDRD) Non-Af 75, BUN/Creatinine Ratio 21.7 H, Glucose 96, Calcium 9.5, Total Bilirubin 0.50, AST 26, ALT 25, Alkaline Phosphatase 181 H, Troponin I < 0.015, Total Protein 7.7, Albumin 3.5, Globulin 4.2, Albumin/Globulin Ratio 0.8 L, Lipase 41 L 02/27/20 19:15: Lactic Acid 1.2 02/27/20 20:36: Urine Color Straw, Urine Clarity Clear, Urine pH 7.0, Ur Specific [place] 1.010, Urine Protein Negative, Urine Glucose (UA) Normal, Urine Ketones Negative, Urine Occult Blood Negative, Urine Nitrite Negative, Urine Bilirubin Negative, Urine Urobilinogen Normal, Ur Leukocyte Esterase Negative, Urine RBC 0 SEEN, Urine WBC 0 SEEN, Ur Squamous Epith Cells 0-5 SEEN, Urine Bacteria 0 SEEN, Urine Mucus 0 SEEN 02/28/20 05:54: Sodium 133 L, Potassium 3.9, Chloride 102, Carbon Dioxide 25.0, Anion Gap 6, BUN 12, Creatinine 0.58, Estim Creat Clear Calc 33.56, Est GFR (MDRD) Af Amer 128, Est GFR (MDRD) Non-Af 106, BUN/Creatinine Ratio 20.6 H, Glucose 84, Calcium 8.6 02/28/20 05:54: PT 14.2, INR 1.2, APTT 33.3 02/28/20 05:54: WBC 8.0, RBC 3.79 L, Hgb 11.1 L, Hct 34.9 L, MCV 92.1, MCH 29.3, MCHC 31.8 L, RDW Std Deviation 48.1 H, RDW Coeff of Rosie 14.5, Plt Count 247, MPV 9.0 Current Medications Albuterol Sulfate (Ventolin Aerosols) 2.5 mg INHALATION Q4H PRN PRN PRN Reason: SOB &/OR WHEEZING Albuterol Sulfate (Ventolin Aerosols) 2.5 mg INHALATION Q6HWA.RT [facility] Last Admin: 02/28/20 06:41 Dose: 2.5 mg Documented by: Budesonide (Pulmicort Aerosol) 0.5 mg INHALATION Q12H.RT [facility] Last Admin: 02/28/20 06:41 Dose: 0.5 mg Documented by: Dextrose (D50w Syringe) 0 gm IV X1 PRN; Protocol PRN Reason: Hypoglycemia Glucagon () 1 mg IM .X1 PRN PRN Reason: Hypoglycemia Heparin Sodium (Porcine) (Heparin Na) 0 unit IV UD PRN; Protocol Pantoprazole Sodium 40 mg/ (Sodium Chloride) 110 mls @ 330 mls/hr IV Q12 [facility] Last Admin: 02/28/20 09:41 Dose: 330 mls/hr Documented by: Sodium Chloride () 250 mls @ 15 mls/hr IV .[id number] PRN PRN Reason: Saline Flush Sodium Chloride () 250 mls @ 15 mls/hr IV .[id number] PRN PRN Reason: Additional IVPB Infusion Potassium Chloride 20 meq/ (Lactated Ringer's) 1,010 mls @ 75 mls/hr IV .[id number] [facility] Last Infusion: 02/28/20 09:42 Dose: 0 mls/hr Documented by: Heparin Sodium/Dextrose () 25,000 units in 250 mls @ 7 mls/hr IV .[id number] DEMETRIO; Protocol Last Admin: 02/28/20 06:34 Dose: 700 units/hr, 7 mls/hr Documented by: Labetalol HCl (Trandate) 10 mg IV Q4H PRN PRN PRN Reason: sbp > 160 Morphine Sulfate () 2 mg IV Q3H PRN PRN PRN Reason: Pain Score 6-10/10 Ondansetron HCl (Zofran) 4 mg IV Q8H PRN PRN PRN Reason: NAUSEA/VOMITING Sodium Chloride () 10 - 40 ml IV UD PRN PRN Reason: SALINE FLUSH Medical Necessity - Tobacco Use Smoking Status: Never smoker Assessment/Plan All Active Problems (Last Reviewed 02/28/20 @ 01:[address] Noe Richmond MD) History of aortic stenosis (Acute) History of hypertension (Acute) SBO (small bowel obstruction) (Acute) Impression: partial bowel obstruction Plan: can d/c NG tube after patient passing flatus, then advance diet to liquids - then can d/c home I will arrange for patient to have follow up with GI medicine at main [facility] as outpatient
--- NOTE | 2020-02-28 10:10 | CASEMGMT ---
RN CM Face to Face with patient for initial transition planning/care coordination assessment. RN CM introduced self and role at [facility]. Patient lying in bed, alert and oriented. Patient willing to participate in assessment and is able to answer all questions appropriately. Care providers, pharmacy, and demographics verified. Patient wishes to discharge home, denies need for home health at this time. Patient states he has no further needs or concerns at this time. CM to follow for discharge planning needs that may arise. PCP: Martinez Specialists: KELLY Gonsales; Gabriel ux research associateChaya Preferred Pharmacy: [facility] Insurance: Social Median Prescription Benefit: yes Living Will/HPOA: yes, Mitchell Valdivia LNOK: Living Arrangements: Patient lives with in 1 story home with 2 steps. Patient is independent at home. Transportation: self/ DME/HHC: Patient had cane, walker, and grab bars at home. Patient states she has had [facility] HHC in the past. Disposition Plan: Patient to discharge home with family support and follow-up plans in place. Dionne FREITAS, RN, CM
[2020-02-28 12:54] LABS: Partial Thromboplast Time 141.2 Seconds (24.1-36.2)
--- NOTE | 2020-02-28 15:46 | DCINST_ITS ---
- Discharge Diagnoses Current Active Problems: Current Active and Chronic Problems (Last Reviewed 02/28/20 @ 01:[address] Noe Richmond MD) SBO (small bowel obstruction) (Acute) You will use the following diet at home:: Cardiac Your food should be the consistency of: Regular - advance clear liquid diet as tolerated Discharge Activity: Return to Normal Activity Weight Bearing Status: Weight bearing as tolerated Call your doctor if you observe: Inability to have a bowel movement, Uncontrolled pain, - - abdominal pain, inability to pass gas Instructions: Small Bowel Obstruction Allergies/Adverse Reactions: Allergies colestipol Allergy (Verified 02/27/20 18:15) Unknown aspirin Adverse Reaction (Verified 02/27/20 18:15) Upset Stomach doxycycline Adverse Reaction (Verified 02/27/20 18:15) Unknown meloxicam Adverse Reaction (Verified 02/27/20 18:15) Upset Stomach metoclopramide [From Reglan] Adverse Reaction (Verified 02/27/20 18:15) Other niacin Adverse Reaction (Verified 02/27/20 18:15) Other NSAIDS (Non-Steroidal Anti-Inflamma Adverse Reaction (Verified 02/27/20 18:15) Upset Stomach PONCE-2 INHIBITOR Allergy (Uncoded 02/27/20 18:15) Unknown Medications to take at Discharge Albuterol Inhaler [Ventolin Hfa] 2 puff INHALATION Q4H PRN PRN 02/27/20 Apixaban [Eliquis] 5 mg PO BID 02/27/20 Brinzolamide/Brimonid Tart [Simbrinza 1%-0.2% Eye Drops] 1 drp RIGHT EYE BID 02/27/20 Calcium Carbonate [Calcium] 600 mg PO BID 02/27/20 Cholecalciferol (VIT D3) [Vitamin D3] 2,000 unit PO DAILY 02/27/20 Clopidogrel Bisulfate [Clopidogrel] 75 mg PO DAILY 02/27/20 Ferrous Sulfate 2 tab PO BID 02/27/20 Fluticasone/Salmeterol [Advair 100-50 Diskus] 1 puff IH BID 02/27/20 Lipase/Protease/Amylase [Creon Dr 36,000 Units Capsule] 2 ea PO TID 02/27/20 Metoprolol Tartrate 50 mg PO BID 02/27/20 Montelukast [Singulair] 10 mg PO DAILY 02/27/20 Multivitamin with Minerals [Multiple Vitamin] 1 ea PO DAILY 02/27/20 Nitroglycerin 0.4 mg SL PRN PRN 02/27/20 Pantoprazole Sodium [Protonix] 40 mg PO BID 02/27/20 Pimecrolimus 1 applicatio TP BID PRN 02/27/20 Rosuvastatin Calcium 10 mg PO DAILY 02/27/20 metroNIDAZOLE 0.75% [Metrogel Vaginal] 70 applic TOPICAL BID 02/27/20 Primary Care Physician: Fadia Reese MD [STAFF PHYSICIAN] - Please follow up with your Primary Care Physician in: 1-2 weeks Test Results: Test results from this visit will be discussed in further detail at your follow- up appointment, if applicable. Please Follow Up With: Jenn Dee MD When: 1 week Proposed Discharge Date: 02/28/20
--- NOTE | 2020-02-28 15:50 | DS.PCM_ITS ---
Discharge Date and Diagnosis - Problem List Patient Problems: Active and Suspected Problems (Last Reviewed 02/28/20 @ 01:[address] Noe Richmond MD) SBO (small bowel obstruction) (Acute) Date of Admission: 02/27/20 Date of Discharge: 02/28/20 - Primary Discharge Diagnosis Active and Suspected Problems (Last Reviewed 02/28/20 @ 01:[address] Noe Richmond MD) SBO (small bowel obstruction) (Acute) Hospital Course and Treatment Imaging Results: Diagnostic Data Abdomen/Pelvis CT 02/27/20 18:28 IMPRESSION: Findings concerning for high-grade small bowel obstruction with associated possible pneumatosis. Extensive pneumobilia. Question hardware/stent displaced within the small bowel lumen. Lung base findings including an area of solid nodular density measuring up to 1.8 cm recommend correlation with any prior imaging and or follow-up dedicated chest CT for further evaluation. Findings discussed with Dr. Marcano by Dr. Moraes on 02/27/2020 9:29 PM via telephone. Electronically Signed: Gerard Moraes, at 21:31 EDT Tel , Service support , KUB X-Ray 02/28/20 05:20 IMPRESSION: Nonspecific bowel gas pattern without evidence of obstruction. Stable position of enteric tube with the tip in the gastric fundus. Probable migrated stent, right mid abdomen also visualized on the recent CT. Electronically Signed: Krishan Hester MD at 5:54 EDT , Service support , General surgery- Dr Dee Operations: None Procedures: None Summary of Care Provided: The patient is a 80 year old F with a PMH of pancreatic cyst s/p Whipple procedure, and aortic stenosis, atrial fibrillation and appendectomy as well as cholecystectomy. She was admitted via the ED on 02/27/2020 with progressively worsening left lower quadrant abdominal pain. Pain was non radiating and cramping, and she had no aggravating or relieving factors, with associated nausea and vomiting. Abdominopelvic CT showed high grade small bowel obstruction with associated possible pneumatosis. She was admitted and managed for small bowel obstruction. She had an NG tube placed and general surgery consulted. She was started on gentle hydration with IVF. Patient gradually improved, and passed gas. NG tube was pulled out after she passed gas. She was started on clear liquids which she tolerated; diet was advanced to soft diet which she also michele ated. 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 Per general surgery, she could be discharged home, and general surgery would arrange for patient to have evaluation by a web page developer at [facility], for dilation of the stricture. Patient improved much more rapidly than expected. Patient remained stable, and she was discharged home on 02/28/2020. She is to advance her diet gradually as tolerated at home and is follow-up with her primary care doctor and general surgery. Patient seen and examined prior to discharge. She had no complaints and felt well. Review of symptoms otherwise negative. Labs and vitals reviewed. Home medication reviewed and reconciled. o/e: Vital Signs Temp Pulse Resp BP Pulse Ox 98.4 F 95 18 120/58 L 100 02/28/20 14:14 02/28/20 14:14 02/28/20 14:14 02/28/20 14:14 02/28/20 14:14 General: Alert, Oriented x3, Cooperative HEENT: Atraumatic, PERRLA, EOMI, Normocephalic Neck: Supple, No JVD, Trachea Midline Lungs: Clear to auscultation, Normal air movement, No rhonchi, No wheeze, No rales Cardiovascular: Regular rate, Regular Rhythm, Normal S1, Normal S2, No murmurs Abdomen: Bowel Sounds Present, Soft, Non Tender Extremities: No edema, Capillary Refill Less than 3 Seconds Skin: No rashes, No breakdown Musculoskeletal: No Tenderness to Palpation of Joints or Extremities Neurological: Cranial nerves II-XII grossly intact Psych/Mental Status: Normal Affect, Appropriate Patient Problems: Active and Suspected Problems (Last Reviewed 02/28/20 @ 01:[address] Noe Richmond MD) SBO (small bowel obstruction) (Acute) - Physical Exam Vitals/I&O's: Vital Signs Temp Pulse Resp BP Pulse Ox 98.4 F 95 18 120/58 L 100 02/28/20 14:14 02/28/20 14:14 02/28/20 14:14 02/28/20 14:14 02/28/20 14:14 Oxygen Delivery Method Room Air Weight: 102 lb 11.767 oz Body Mass Index (BMI) 17.3 Intake and Output for Last 24 Hours 02/26/20 02/27/20 02/28/20 23:59 23:59 23:59 Intake Total 1000 / 1110 1516.78 / 1516.78 Output Total 1150 / 1150 Balance 1000 / 1110 366.78 / 366.78 Laboratory Results 02/27/20 18:42: WBC 8.9, RBC 4.13 L, Hgb 12.0, Hct 37.9, MCV 91.8, MCH 29.1, MCHC 31.7 L, RDW Std Deviation 48.0 H, RDW Coeff of Rosie 14.5, Plt Count 344, MPV 9.2, Immature Gran % (Auto) 0.500, Neut % (Auto) 77.3 H, Lymph % (Auto) 12.0 L, Turner % (Auto) 8.9, Eos % (Auto) 1.1, Baso % (Auto) 0.2, Absolute Neuts (auto) 6.9, Absolute Lymphs (auto) 1.06, Nucleated RBC % 0 02/27/20 18:42: Sodium 130 L, Potassium 3.7, Chloride 94 L, Carbon Dioxide 30.0, Anion Gap 6, BUN 17, Creatinine 0.78, Estim Creat Clear Calc 32.01, Est GFR (MDRD) Af Amer 91, Est GFR (MDRD) Non-Af 75, BUN/Creatinine Ratio 21.7 H, Glucose 96, Calcium 9.5, Total Bilirubin 0.50, AST 26, ALT 25, Alkaline Phosphatase 181 H, Troponin I < 0.015, Total Protein 7.7, Albumin 3.5, Globulin 4.2, Albumin/Globulin Ratio 0.8 L, Lipase 41 L 02/27/20 19:15: Lactic Acid 1.2 02/27/20 20:36: Urine Color Straw, Urine Clarity Clear, Urine pH 7.0, Ur Specific [place] 1.010, Urine Protein Negative, Urine Glucose (UA) Normal, Urine Ketones Negative, Urine Occult Blood Negative, Urine Nitrite Negative, Urine Bilirubin Negative, Urine Urobilinogen Normal, Ur Leukocyte Esterase Negative, Urine RBC 0 SEEN, Urine WBC 0 SEEN, Ur Squamous Epith Cells 0-5 SEEN, Urine Bacteria 0 SEEN, Urine Mucus 0 SEEN 02/28/20 05:54: Sodium 133 L, Potassium 3.9, Chloride 102, Carbon Dioxide 25.0, Anion Gap 6, BUN 12, Creatinine 0.58, Estim Creat Clear Calc 33.56, Est GFR (MDRD) Af Amer 128, Est GFR (MDRD) Non-Af 106, BUN/Creatinine Ratio 20.6 H, Glucose 84, Calcium 8.6 02/28/20 05:54: PT 14.2, INR 1.2, APTT 33.3 02/28/20 05:54: WBC 8.0, RBC 3.79 L, Hgb 11.1 L, Hct 34.9 L, MCV 92.1, MCH 29.3, MCHC 31.8 L, RDW Std Deviation 48.1 H, RDW Coeff of Rosie 14.5, Plt Count 247, MPV 9.0 02/28/20 12:32: APTT 141.2 H* Diagnostic Data Abdomen/Pelvis CT 02/27/20 18:28 IMPRESSION: Findings concerning for high-grade small bowel obstruction with associated possible pneumatosis. Extensive pneumobilia. Question hardware/stent displaced within the small bowel lumen. Lung base findings including an area of solid nodular density measuring up to 1.8 cm recommend correlation with any prior imaging and or follow-up dedicated chest CT for further evaluation. Findings discussed with Dr. Marcano by Dr. Moreas on 02/27/2020 9:29 PM via telephone. Electronically Signed: Gerard Moraes, at 21:31 EDT Tel , Service support , KUB X-Ray 02/28/20 05:20 IMPRESSION: Nonspecific bowel gas pattern without evidence of obstruction. Stable position of enteric tube with the tip in the gastric fundus. Probable migrated stent, right mid abdomen also visualized on the recent CT. Electronically Signed: Krishan Hester MD at 5:54 EDT , Service support , Current Medications Albuterol Sulfate (Ventolin Aerosols) 2.5 mg INHALATION Q4H PRN PRN PRN Reason: SOB &/OR WHEEZING Albuterol Sulfate (Ventolin Aerosols) 2.5 mg INHALATION Q6HWA.RT [facility] Last Admin: 02/28/20 13:14 Dose: 2.5 mg Documented by: Budesonide (Pulmicort Aerosol) 0.5 mg INHALATION Q12H.RT [facility] Last Admin: 02/28/20 06:41 Dose: 0.5 mg Documented by: Dextrose (D50w Syringe) 0 gm IV X1 PRN; Protocol PRN Reason: Hypoglycemia Glucagon () 1 mg IM .X1 PRN PRN Reason: Hypoglycemia Heparin Sodium (Porcine) (Heparin Na) 0 unit IV UD PRN; Protocol Pantoprazole Sodium 40 mg/ (Sodium Chloride) 110 mls @ 330 mls/hr IV Q12 [facility] Last Infusion: 02/28/20 10:01 Dose: Infused Documented by: Sodium Chloride () 250 mls @ 15 mls/hr IV .[id number] PRN PRN Reason: Saline Flush Sodium Chloride () 250 mls @ 15 mls/hr IV .[id number] PRN PRN Reason: Additional IVPB Infusion Potassium Chloride 20 meq/ (Lactated Ringer's) 1,010 mls @ 75 mls/hr IV .[id number] [facility] Last Admin: 02/28/20 15:20 Dose: 75 mls/hr Documented by: Heparin Sodium/Dextrose () 25,000 units in 250 mls @ 7 mls/hr IV .[id number] [facility]; Protocol Last Titration: 02/28/20 15:21 Dose: 400 units/hr, 4 mls/hr Documented by: Labetalol HCl (Trandate) 10 mg IV Q4H PRN PRN PRN Reason: sbp > 160 Morphine Sulfate () 2 mg IV Q3H PRN PRN PRN Reason: Pain Score 6-10/10 Ondansetron HCl (Zofran) 4 mg IV Q8H PRN PRN PRN Reason: NAUSEA/VOMITING Sodium Chloride () 10 - 40 ml IV UD PRN PRN Reason: SALINE FLUSH Discharge Diet: Low fat/ Low Cholesterol Discharge Activity: Return to Normal Activity Weight Bearing Status: Weight bearing as tolerated Call your doctor if you observe: Inability to have a bowel movement, Uncontrolle d pain, - - abdominal pain, inability to pass gas Home Medications: Medications to take at Discharge Albuterol Inhaler [Ventolin Hfa] 2 puff INHALATION Q4H PRN PRN 02/27/20 Apixaban [Eliquis] 5 mg PO BID 02/27/20 Brinzolamide/Brimonid Tart [Simbrinza 1%-0.2% Eye Drops] 1 drp RIGHT EYE BID 02/27/20 Calcium Carbonate [Calcium] 600 mg PO BID 02/27/20 Cholecalciferol (VIT D3) [Vitamin D3] 2,000 unit PO DAILY 02/27/20 Clopidogrel Bisulfate [Clopidogrel] 75 mg PO DAILY 02/27/20 Ferrous Sulfate 2 tab PO BID 02/27/20 Fluticasone/Salmeterol [Advair 100-50 Diskus] 1 puff IH BID 02/27/20 Lipase/Protease/Amylase [Creon Dr 36,000 Units Capsule] 2 ea PO TID 02/27/20 Metoprolol Tartrate 50 mg PO BID 02/27/20 Montelukast [Singulair] 10 mg PO DAILY 02/27/20 Multivitamin with Minerals [Multiple Vitamin] 1 ea PO DAILY 02/27/20 Nitroglycerin 0.4 mg SL PRN PRN 02/27/20 Pantoprazole Sodium [Protonix] 40 mg PO BID 02/27/20 Pimecrolimus 1 applicatio TP BID PRN 02/27/20 Rosuvastatin Calcium 10 mg PO DAILY 02/27/20 metroNIDAZOLE 0.75% [Metrogel Vaginal] 70 applic TOPICAL BID 02/27/20 Primary Care Physician: Fadia Reese MD [STAFF PHYSICIAN] - Please follow up with your Primary Care Physician in: 1-2 weeks Please Follow Up With: Jenn Dee MD When: 1 week Patient Instructions: Small Bowel Obstruction Disposition: Home Minutes spent on discharge:: 35 Medical Necessity - Tobacco Use Smoking Status: Never smoker Meaningful Use Info Meaningful Use Diagnoses (Choose all that apply): None applicable Inpatient E&M: [id number] [facility]
== END 2020-02-28 16:43 | disposition home or self-care (01) | DRG 390 ==
LOC: ED 21:50 → MS3 22:04
PROVIDERS: Admitting Provider Hospitalist; Emergency Provider Emergency Medicine; PCP Internal Medicine; Visit Provider Student in an Organized Health Care Education/Training Program
DX: K56.600 Partial intestinal obstruction, unspecified as to cause (principal); Z96.89 Presence of other specified functional implants; Z90.49 Acquired absence of other specified parts of digestive tract; I49.3 Ventricular premature depolarization; I10 Essential (primary) hypertension; E78.00 Pure hypercholesterolemia, unspecified; I48.0 Paroxysmal atrial fibrillation; Z79.01 Long term (current) use of anticoagulants; Z79.02 Long term (current) use of antithrombotics/antiplatelets; Z79.899 Other long term (current) drug therapy; I35.0 Nonrheumatic aortic (valve) stenosis; Z95.2 Presence of prosthetic heart valve; R91.1 Solitary pulmonary nodule; J45.909 Unspecified asthma, uncomplicated; K58.9 Irritable bowel syndrome, unspecified; M81.0 Age-related osteoporosis without current pathological fracture; I49.8 Other specified cardiac arrhythmias; I44.7 Left bundle-branch block, unspecified; Z87.440 Personal history of urinary (tract) infections
CPT/HCPCS: 36415; 74018; 74177; 80048; 80053; 81001; 83605; 83690; 84484; 85025; 85027; 85610; 85730; 93005; 94640; 96360; 99285; J7120; Q9967; A4216; J2405

== ENCOUNTER → 2020-04-03 13:01 | Outpatient (CLI) | payer MEDICARE, OTHER, SELFPAY ==
--- NOTE | 2020-04-03 13:08 | PCM.CR.ITP ---
Diagnosis - General Information Admitting Diagnosis: S/P AVR @ [facility] [place] Personal Learning Style:: Audio/Visual, Written Barriers to Learning: Hearing Impairment, Vision Impairment Stage of change r/t lifestyle modifications:: Action Gave educational material for:: Treating Heart Disease, Emotions & Heart Disease, Stress Management & Relaxation, Sleep Disorders & Heart Disease, How The Heart Works, What it means to have Heart Disease, How Coronary Artery Disease is Diagnosed, Heart Procedures, What Heart Medications Do, Risk Factors & Modifications, Living an Active Life, Nutrition - Education/Goals Individual Counseling: Initial Assessment: Abnormal Cholesterol Levels, High Blood Pressure, Overweight/Obesity - MALNUTRITION, Sedentary Lifestyle Cardiac Rehabilitation Goals: 1. Maintain the individual as the primary focus of care. 2. To improve the patient's quality of life. 3. Identification of cardiac risk factors and provide cardiac risk factor management. 4. Enhance the psychosocial status of the patient. 5. Reconditioning enough to allow the patient to resume customary activities. 6. Control symptoms of cardiac disease Personal Goals: Initial Assessment: Improve management of stress and emotions, Improve energy level, Participate in home exercise program, Improve muscle strength and endurance, Improve diet and eating habits (eat healthier), Control risk factors (learn risk factor modification) Scale for measuring improvement of personal goals: Enter appropriate number in Comments. 2 = Unchanged. 3 = Slightly Better. 4 = Moderate Improvement. 5 = Met my Goal Exercise - Initial Assessment - Visit Date of Eval: 04/03/20 Session #:: 0 - INITIAL EVALUATION Mets: Pre-: >5 METS for 30 minutes by discharge - Physician Prescribed Exercise Modalities: Treadmill, Airdyne, NuStep, SciFit Frequency: 3x/week for 12 weeks [36 sessions] Intensity: 60-80% of age predicted maximum heart rate reserve Current METSs:: 2.5 Target Heart Rate:: 92-119 Resting Blood Pressure: 120/58 EKG Type: SR w// PVCs and BBB Current Physical Activity or Exercising minutes: none - Outcomes & Goals Goals:: Verbalizes understanding of THR, RPE & goal METS by session 6, Documents in home exercise log/reports 30 min aerobic 5 day/wk by DC, Demonstrates accurate pulse taking by DC - Intervention & Plan Exercise Program Goals: Instruct on personal THR & RPE, Instruct on MET level & personal MET goal, Show patient to take own pulse /validate performance until accurate, Instruct on home exercise - Physical Activity Home Exercise Physical Activity - Home Exercise: Safe Exercise, Warm-up, Self-monitoring, Cool-Down, Home Exercise > 30 min Daily, Sitting Time <3 hours/daily - Outcomes & Goals Outcomes/Goals: Demonstrates correct Warm-up/exercise Cool-Down (S3) if = 2.5 METs, Verbalizes symptoms of exercise intolerance by Session 3 (S3), Demonstrate safe equipment use (S3) & follows exercise prescrition (6) - Intervention & Plan Plan/Intervention: Instruct warm-up & cool-down if exercising at > 2 METs, Instruct on symptoms of exercise intolerance & actions to take, Instruct & monitor on saf, Assess intial functional capacity & safety risk Nutrition - Initial Assessment - Program Goals Nutrition Program Goals: LDL <100 optimal. 100 - 129 Near optimal. 130 - 159 Borderline High. 160 - 189 High. Total Cholesterol <200 desirable. 200 - 239 Borderline High. >/= 240 High. HDL < 40 Low >/=60 High. Triglycerides <150 desirable. <199 optimal. VlDL 5 - 40. HgbA1C <7%. BMI <25 Patient has diagnosis of Hyperlipidemia (ICD E78)?: Yes - Visit Date of Assessment:: 04/03/20 - mixed hyperlipidemia Session #:: 0 - intial evaluation - Cholesterol/Lipids Triglycerides (mg/dL): 113 Total Cholesterol (mg/dL): 126 LDL Cholesterol (mg/dL): 60 HDL Cholesterol (mg/dL): 43 Determine presence & major risk factors that modify LDL goal: Hypertension or hypertensive medication, Age men > 45 years; women >/= 55 years Outcomes/Goals: Pt IDs own risk factors & lifestyle modifications by Session 10, Verbalizes symptoms of angina & response by session 3., Pt independently manages Intervention/Plan: Instruct on personal lipid levels & lipid goals/NCEP guidelines Referral to dietitian:: Yes - Diabetes (Other Core Measures) Diabetes Type: Not Applicable - Weight Mgt (Other Care) Not Applicable: No Height: 5 ft 4.5 in Weight:: 102 lb - underweight BMI: 17.2 Diagnosis Overweight/Obesity BMI> 30% ICD-10 E66: No Diagnosis High BMI/Morbid Obesity BMI> 35% ICD-10 Z68: No - Healthy Eating Habits Will attend diet classes:: Yes Outcomes/Goals:: Consume diet rich in vegs,fruits,whole grain/high fiber,fish,lean meat, Limit sat/trans fats,cholesterol & added salts & sugars Intervention/Plan:: Assess current eating habits - Education Gave educational materials for:: Healthy eating Medical - Initial Assessment - Visit Date of Eval: 04/03/20 Session #:: 0 - initial evaluation - Medication Compliance Preventative Medication(s):: Clopidogrel/P2Y12 inhibit, Statin/lipid, Beta kyree H/O mental health issues: depression, anxiety, or addiction?: No Doesn?t believe in the benefits of treatment?: No Believes medications are unnecessary or harmful?: No Has a concern about medication side effects?: No Expresses concern over the cost of medications?: No Outcomes/Goals: Verbalizes medications,desired effect & common side effects @ DC, Pt self-reports following medication regimen, Keeps card in wallet w/medications listed by DC Interventions/plans: Instruct on medication effects & side effects, Review medication list w/patient every two weeks, Instruct importance of taking meds as ordered & assist problem solving - Tobacco Use Tobacco Use: Non-smoker - Hypertension Hypertension Diagnosis:: Hypertension ICD-10 I10 Resting Blood Pressure:: 120/58 [place] [employer] Hypertension Guidelines: [place] [employer] Hypertension Guidelines. Normal BP Less than 120/80. Elevated BP 120/80. Hypertension Stage 1: BP 130-139/80-89. Hypertesnion Stage 2: BP 140 or higher/90 or higher. Hypertension Crisis: BP higher than 180/120 Outcomes/Goals: Able to verbalize/achieve optimal blood pressure <130/80, Incorporates diet changes & exercise for blood pressure control by DC Interventions/plan: Instruct on optimal blood pressure, hypertension & medications, Instruct on effects of sodium, alcohol, stress, exercise &hypertension - Tobacco Cessation Referral Smoking Cessation Referral:: No Individual Education/Counseling:: No Education Schedule Given:: Yes Psychosocial - Initial Assess - VIsit Date of Eval: 04/03/20 Session #:: 0 - initial evaluation Not Applicable: Yes History of previous Mental disease:: No - Target Goals Target Goals: Assess presence or absence of depression. Using a valid screening tool, maximizes coping skills. Positive support system - Psychosocial Test Tool Used:: Manolo Gill QOL Cardiac, PHQ-9 Questionnaire phq-9 Severity: Severity. 1-4 Minimal Depression. 5-9 Mild Depression. 10-14 Moderate Depression. 15-19 Moderately Sever Depression. 20-27 Severe Depression. Rule: - Referral to Behavioral Health PS - Interventions: Yes Referral to Behavioral Health if PHQ-9 score >9:, Yes Referral to Physician if PHQ-9 if score is 5-9: - 7 on PHQ survey + risk depression - Outcomes/Goals: See list Psychosocial Outcomes/Goals:: ID's personal stressors & 2 strategies to manage stress by discharge - Intervention/Plan: See List Interventions/Plan:: Assess stressors,coping strategies & signs of derpression on admission, Instruct/assist pt to develop coping & personal stress Mgt strategies, Instruct patient to recognize signs & symptoms of depression, Instruct patient to recog Patient Health Questionnaire Initial Assessment 1. Little interest or pleasure in doing things: Several days 2. Feeling down, depressed, or hopeless: Not at all 3. Trouble falling or staying asleep, or sleeping too much: Several days 4. Feeling tired or having little energy: Several days 5. Poor appetite or overeating: Not at all 6. Feeling bad about yourself -- or that you are a failure or have let yourself or your family down: Several days 7. Trouble concentrating on things, such as reading the newspaper or watching television: Several days 8. Moving or speaking so slowly that other people could have noticed. Or the opposite - being so fidgety or restless that you have been moving around a lot more than usual: Several days 9. Thoughts that you would be better off , or of hurting yourself in some way: Several days How difficult have these problems made it for you to do your work, take care of things at home, or get along with other people?: Somewhat difficult Total Score: 7 DAVID-Q SV Test - Statements CAD is a disease of the arteries in the heart: False Examples of risk factors for heart disease: True Angina is chest pain or discomfort: True The benefits of resistance training include: True Eating more meat and dairy products: False Anti-platelet medications such as aspirin are important: True The only effective way to manage stress: False An exercise warm-up slowly increases heart rate: I Don't Know Prepared, processed foods usually have high sodium: False Depression is common after a heart attack: True The statin medications lower cholesterol: True To control blood pressure, lower the amount of sodium: I Don't Know If someone gets chest discomfort during walking: False Transfats are partially hydrogenated vegetable oils: True Sleep apnea that is not treated increases the risk: I Don't Know To control cholesterol, one should become a vegetarian: False Someone knows if he/she is exercising at the right level: I Don't Know Diabetes cannot be prevented with exercise & health eating: True Stress is a large risk for heart attack: True A diet that can help lower blood pressure is rich in: True - Total Score Total Correct Responses: 14 Self-Efficacy Initial Assessment We would like to know how confident you are in doing certain activities. Please select your confidence level for:: Select your confidence level for the following using the scale 1-10 where 1 is not at all confident and 10 is totally confident. Your score is the average of all 6 responses. Fatigue: How confident are you that you can keep the fatigue caused by your disease from interfering with the things you want to do? Select Number: 3 Physical Discomfort or Pain: How confident are you that you can keep the physical discomfort or pain of your disease from interfering with the things you want to do? Select Number: 6 Emotional Distress: How confident are you that you can keep the emotional distress caused by your disease from interfering with the things you want to do? Select Number: 3 Other Symptoms or Health Problems: How confident are you that you can keep other symptoms or health problems from interfering with the things you want to do? Select Number: 6 Different Tasks and Activities: How confident are you that you can do the different tasks and activities needed to manage your health condition so as to reduce your need to see a doctor? Select Number: 7 Medication: How confident are you that you can do things other than just taking medication to reduce how much your illness affects your everyday life? Select Number: 8 Total Score:: 5 Nutrition Survey - Nutrition Survey Instructions Scoring Instructions: Scoring is as follows: Yes = 1 points. No = 0 point. Patient score that is >/=12 is considered to be at potential nutritional risk and could benefit from a referral to a registered dietitian. - Nutrition Survey Initial Have you lost >10 lbs over the past 2 months without trying?: Yes Are you following a special diet at home for diabetes, low fat, or low salt?: Yes Are you interested in meeting with a dietitian for help understanding your diet?: Yes Do you eat less than 3 meals a day?: No Do you eat fatty meats (cuevas, sausage, ribs, etc), fried foods, desserts, large amounts of salad dressings, margarine, butter, or cheese most days?: No Do you have food allergies? [Enter types in comment field]: Yes - clams, citrus Do you eat in restaurants more than 3 times a week?: No Do you season food with salt, seasoning salt, or garlic salt?: No Do you used canned, boxed, frozen meals, or soups, seasoning packets?: No Total Score:: 4
--- NOTE | 2020-04-03 13:08 | PCM.CR.HP2 ---
CR - History & Physical - General Arrival date:: 04/03/20 Arrival time:: 13:00 Date of Referral:: 03/27/20 Date of CR Evaluation:: 04/03/20 Referring Physician: DR. NETO VIDAL ([facility]) Primary Diagnosis: AVR - History of Present Cardiac Event Onset Date: Enter Onset Date of cardiac illnesses in Comment field below Heart valve replacement or repair:: Yes - 12/31/2019 @ [facility] Were there any complications?: PAROXYSMAL ATRIAL FIBRILLATION - Medications Home Medications: Ambulatory Orders Medication Instructions Recorded Albuterol Inhaler [Ventolin Hfa] 2 puff INHALATION Q4H PRN PRN 02/27/20 Apixaban [Eliquis] 5 mg PO BID 02/27/20 Brinzolamide/Brimonid Tart 1 drp RIGHT EYE BID 02/27/20 [Simbrinza 1%-0.2% Eye Drops] Calcium Carbonate [Calcium] 600 mg PO BID 02/27/20 Cholecalciferol (VIT D3) [Vitamin 2,000 unit PO DAILY 02/27/20 D3] Clopidogrel Bisulfate [Clopidogrel] 75 mg PO DAILY 02/27/20 Ferrous Sulfate 2 tab PO BID 02/27/20 Fluticasone/Salmeterol [Advair 1 puff IH BID 02/27/20 100-50 Diskus] Lipase/Protease/Amylase [Charo Easley 2 ea PO TID 02/27/20 36,000 Units Capsule] Metoprolol Tartrate 25 mg PO BID 02/27/20 Montelukast [Singulair] 10 mg PO DAILY 02/27/20 Multivitamin with Minerals 1 ea PO DAILY 02/27/20 [Multiple Vitamin] Nitroglycerin 0.4 mg SL PRN PRN 02/27/20 Pantoprazole Sodium [Protonix] 40 mg PO BID 02/27/20 Pimecrolimus 1 applicatio TP BID PRN 02/27/20 Rosuvastatin Calcium 10 mg PO DAILY 02/27/20 metroNIDAZOLE 0.75% [Metrogel 70 applic TOPICAL BID 02/27/20 Vaginal] Acetaminophen [Non-Aspirin] 325 - 650 mg PO Q6H PRN 04/03/20 Amlodipine [Norvasc] 2.5 mg PO DAILY 04/03/20 Sennosides/Docusate Sodium 1 each PO PRN 04/03/20 [Senna-S Tablet] - Allergies Allergies/Adverse Reactions: Allergies colestipol Allergy (Verified 02/27/20 18:15) Unknown aspirin Adverse Reaction (Verified 02/27/20 18:15) Upset Stomach doxycycline Adverse Reaction (Verified 02/27/20 18:15) Unknown meloxicam Adverse Reaction (Verified 02/27/20 18:15) Upset Stomach metoclopramide [From Reglan] Adverse Reaction (Verified 02/27/20 18:15) Other niacin Adverse Reaction (Verified 02/27/20 18:15) Other NSAIDS (Non-Steroidal Anti-Inflamma Adverse Reaction (Verified 02/27/20 18:15) Upset Stomach PONCE-2 INHIBITOR Allergy (Uncoded 02/27/20 18:15) Unknown - Sleep Disorder Evaluation Hx of Sleep Apnea: No Do you snore loudly (louder than talking or can be heard through closed doors)?: No Do you often feel tired/ fatigued/ sleepy during daytime?: Yes Has anyone observed you stop breathing during sleep?: No History of Hypertension (for STOP score): Yes STOP Results: Positive Advanced Directives - Advanced Directives Power of Strategy Analyst: Yes Advance Directives Information Provided: No Advance Directives on File: Yes - patient believes they should be on file DNR Order?:: No - MOLST See MOLST form: No Past Medical History - Past Medical Illness Medical History: Past Medical History (Last Updated 04/03/20 @ 13:31 by Sohail Nettles CRT, [employer], BS) Asthma J45.909 CAD (coronary artery disease) I25.10 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 Paroxysmal atrial fibrillation I48.0 Peripheral arterial disease I73.9 Pulmonary nodule R91.1 Spinal stenosis of lumbar region M48.061 TIA (transient ischemic attack) G45.9 Hypertension I10 Aortic stenosis I35.0 - Past Surgical History Surgical History: Past Surgical History (Last Updated 04/03/20 @ 13:29 by Sohail Nettles, CHARGER TESTER, [employer], BS) S/P AVR (aortic valve replacement) and aortoplasty Z95.2 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 Social History - Smoking History Smoking Status: Never smoker Hx Tobacco Use: No Hx Smoking Exposure: No - Alcohol Use Alcohol Usage: No - Substance Abuse Hx Substance Use: No - Occupation Occupation (List type of work in comments):: Homemaker, Retired - Hobbies, Recreation, Social Activities Hobbies: Other - travel, outside yard work, flower beds, gardening etc. Recreational Activities: I am able to engage in most, but not all activities Social Environment - Status Marital Status: - Current Living Arrangements Living Environment:: Spouse - Children How many children do you have?: 2 - Do any of your children live nearby?: No - [place] and [place], [place] - Safety Do you feel safe in your surroundings?: Yes - Assistance Do you need any assistance at home?: yes Review of Systems - Review of Systems Hints: Right click = Denies ([place]ash). Left click = Reports ([place]) Review of Present Symptoms: Reports: Shortness of Breath with Exertion - sometimes appears when walking to fast, stairs and activities., Wound Healing, Dizziness/Lightheadedness - h/o positional hypotension (marginal), Fatigue, Heart Arrhythmia/Irregularities - paroysmal atrial fibrillation, Bundle Branch Block, Appetite - Normal - Friday last week just came off tube feedings and now on 6 meals a day to gain weight., Appetite - Special Diet - increased meals (6) per day to help gain weight., Sleep - Normal. Denies: Shortness of Breath at Rest, Sexual Changes - Pain Is Patient Pain Free?: Yes Pain Location: none Pain Level: 0/10 Risk Factor Assessment - Vital Signs Temperature: 97.6 F Respiratory Rate: 16 Pulse Ox: 98 Blood Pressure: 120/58 - Pulse Pulse Rate: 68 Pulse Rhythm: Regular - Hypertension How long have you been treated?: around 1999 when diagnosed heart murmur On medication(s)?: yes Blood Pressure Sitting - Left Arm: 120/58 - Stress Stress: Recent - health and two surgeries within 3 months of each other December 30 and March 03, 2020 - Blood Cholesterol/Lipids Total Cholesterol (mg/dL) Goal = less than 200 mg/dL: 126 HDL Cholesterol (mg/dL) Goal = less than 40 mg/dL: 43 LDL Cholesterol (mg/dL) Goal = less than 70 mg/dL: 60 Triglycerides (mg/dL) Goal = less than 150 mg/dL: 113 - Diabetes Nutrition Referral for Diabetes: No - Obesity Height: 5 ft 4.5 in Weight:: 102 lb Weight in Pounds: 102.0 lbs Weight Source: Estimated by Patient Body Mass Index (BMI): 17.2 Nutritional Referral for Obesity: No - Physical Inactivity Physical Inactivity: None - Risk Stratification Risk Guidelines: Lowest Risk: Risk Factor for Smoking, Risk Factor for Dyslipidemia, Risk Factor for Diabetes, Risk Factor for Obesity - Risk malnutrition low BMI/body weight, Risk Factor for Hypertension, Risk Factor for Depression, Moderate Risk: Risk Factor for Sedentary Lifestyle - For Smoking Smoking Risk Guidelines: Smoking Low Risk: None or quit greater than 6 months ago. Smoking Moderate Risk: Smoker or quit 6 months or less ago. Smoking High Risk: Smoker - For Dyslipidemia Dyslipidemia Risk Guidelines: Low Risk: Moderate Risk: High Risk: 15-25% fat 25.1-29% fat >/= 30% fat. <7% sat fat 7-9% sat fat >9% sat fat. <150 mg chol 150-299 mg chol >/= 300 mg chol. LDL <100 LDL 100-129 LDL >/= 130. Chol/HDL ratio <5.0 Chol/HDL ratio 5.0-6.0 Chol/HDL ratio >6.0. Triglycerides <100 Triglycerides 100-149 Triglycerides >/= 150 - For Diabetes Mellitus Diabetes Risk Guidelines: Diabetes Low Risk: HgA1c <6.5% and/or FBG <120. Diabetes Moderate Risk: HgA1c 6.6-7.9% and/or FBG 120-180. Diabetes High Risk: HgA1c >/= 8% and/or FBG >180 - For Obesity/Overweight Obesity/Overweight Risk Guidelines: Obesity Low Risk: BMI <25.0. Obesity Moderate Risk: BMI 25-29.9. Obesity High Risk: BMI >/= 30.0 - For Hypertension Hypertension Risk Guidelines: Hypertension Low Risk: Systolic <120 and Diastolic <80. Hypertension Moderate Risk: Systolic 120-139 and Diastolic 80-89. Hypertension High Risk: Systolic >/= 140 and Diastolic >/= 90 - For Sedentary Lifestyle Sedentary Lifestyle Risk Guidelines: Sedentary Lifestyle Low Risk: >/= 1,500 kcal/week. Sedentary Lifestyle Moderate Risk: 700-1,499 kcal/week. Sedentary Lifestyle High Risk: < 700 kcal/week - For Depression Depression Risk Guidelines: Depression Low Risk: Not clinically depressed. Depression Moderate Risk: Mildly depressed. Depression High Risk: Clinically depressed Motivation - Motivation to Participate On a scale of 1 to 10, how prepared are you to commit to attending program?: 8 What do you see as barriers to successfully being able to complete the program?: weakness, fatigue What do you see as the benefits of succesfully completing the program? In other words, what do you hope to get out of participating in the program?: living a healthier lifestyle Are there issues you are dealing with that will interfere with completing the program?: recent multiple GI concerns; partial stomach removal and small bowel remove Do you have a spouse or signficant other, family or friends who will help support you to complete the program?: yes
[2020-04-03 13:52] VITALS: BP 120/58; PULSE 68; RESP 16; TEMP 36.4; O2SAT 98; BMI 17.2
[2020-04-03 14:07] VITALS: BP 120/58; BMI 17.2
== END ==
PROVIDERS: PCP Internal Medicine
DX: I25.10 Atherosclerotic heart disease of native coronary artery without angina pectoris (principal); Z95.2 Presence of prosthetic heart valve; K58.9 Irritable bowel syndrome, unspecified; I24.1 Dressler's syndrome; E78.2 Mixed hyperlipidemia; I35.0 Nonrheumatic aortic (valve) stenosis; I48.0 Paroxysmal atrial fibrillation; I73.9 Peripheral vascular disease, unspecified; I10 Essential (primary) hypertension; M48.061 Spinal stenosis, lumbar region without neurogenic claudication; Z86.73 Personal history of transient ischemic attack (TIA), and cerebral infarction without residual deficits; Z79.01 Long term (current) use of anticoagulants; Z79.02 Long term (current) use of antithrombotics/antiplatelets; Z79.899 Other long term (current) drug therapy

== ENCOUNTER 2020-04-21 10:15 | Outpatient (RCR) | payer MEDICARE, OTHER, SELFPAY ==
[2020-04-03 13:52] VITALS: BMI 17.2
[2020-04-03 14:07] VITALS: BMI 17.2
== END 2020-04-25 23:59 ==
LOC: CR 10:15
PROVIDERS: PCP Internal Medicine
DX: Z95.2 Presence of prosthetic heart valve (principal)
CPT/HCPCS: 93798

== ENCOUNTER 2020-05-26 10:15 | Outpatient (RCR) | payer MEDICARE, OTHER, SELFPAY ==
[2020-04-03 13:52] VITALS: BMI 17.2
[2020-04-03 14:07] VITALS: BMI 17.2
--- NOTE | 2020-05-03 14:18 | CR.ITP_ITS ---
Diagnosis - General Information Admitting Diagnosis: S/P AVR Personal Learning Style:: Audio/Visual, Written Barriers to Learning: Hearing Impairment, Vision Impairment Stage of change r/t lifestyle modifications:: Action Gave educational material for:: Treating Heart Disease, Emotions & Heart Disease, Stress Management & Relaxation, Sleep Disorders & Heart Disease, How The Heart Works, What it means to have Heart Disease, How Coronary Artery Disease is Diagnosed, Heart Procedures, What Heart Medications Do, Risk Factors & Modifications, Living an Active Life, Nutrition - Education/Goals Cardiac Rehabilitation Goals: 1. Maintain the individual as the primary focus of care. 2. To improve the patient's quality of life. 3. Identification of cardiac risk factors and provide cardiac risk factor management. 4. Enhance the psychosocial status of the patient. 5. Reconditioning enough to allow the patient to resume customary activities. 6. Control symptoms of cardiac disease Scale for measuring improvement of personal goals: Enter appropriate number in Comments. 2 = Unchanged. 3 = Slightly Better. 4 = Moderate Improvement. 5 = Met my Goal - Diagnosis & Disease Process Outcomes/Goals: Pt IDs own risk factors & lifestyle modifications by Session 10, Verbalizes symptoms of angina & response by session 3., Pt independently manages, Other Additional Outcomes/Goals: Plan/Interventions: Assist Pt to ID & engage in lifestyle modification to reduce CVD risk, Instruct on individual risk factors, Review symptoms of angina & emergency actions, Review secondary diagnosis & identify educational needs., Other see comment 30 day Reassessments:: Progressing 30 day Reassessments:: Progressing 30 day Reassessments:: Progressing 30 day Reassessments:: Progressing Final Reassessments:: Progressing - Safety Referral to Physical Therapy: No Referral to [facility] Case Management: No Fall Risk Assessed:: Yes Assistive Devices:: None Exercise - 30-day Assessment - Visit Date of Eval: 05/03/20 Session #:: 10 - Physician Prescribed Exercise Modalities: Treadmill, Airdyne, NuStep, SciFit Frequency: 3x/week for 12 weeks [36 sessions] Intensity: 60-80% of age predicted maximum heart rate reserve Current METSs:: 2.5 Target Heart Rate:: 92-119 Current RPE:: 12-13 Maximum Excercise HR:: 96 Resting Blood Pressure: 100/50 Maximum Exercise Blood Pressure: 122/72 EKG Type: SR W/LBBB - Outcomes & Goals Goals:: Verbalizes understanding of THR, RPE & goal METS by session 6, Documents in home exercise log/reports 30 min aerobic 5 day/wk by DC, Demonstrates accurate pulse taking by DC, Other additional outcome/goals: see below - Intervention & Plan Exercise Program Goals: Instruct on personal THR & RPE, Instruct on MET level & personal MET goal, Show patient to take own pulse /validate performance until accurate, Instruct on home exercise, Other additional plan/int - 30-day Reassessments 30 day Reassessments:: Progressing - Physical Activity Home Exercise Physical Activity - Home Exercise: Safe Exercise, Warm-up, Self-monitoring, Cool-Down, Home Exercise > 30 min Daily, Sitting Time <3 hours/daily - Outcomes & Goals Outcomes/Goals: Demonstrates correct Warm-up/exercise Cool-Down (S3) if = 2.5 METs, Verbalizes symptoms of exercise intolerance by Session 3 (S3), Demonstrate safe equipment use (S3) & follows exercise prescrition (6), Other: See below - Intervention & Plan Plan/Intervention: Instruct warm-up & cool-down if exercising at > 2 METs, Instruct on symptoms of exercise intolerance & actions to take, Instruct & monitor on saf, Assess intial functional capacity & safety risk, Other See below - 30-day Reassessments 30 day Reassessments:: Progressing Nutrition - 30-Day Assessment - Program Goals Nutrition Program Goals: LDL <100 optimal. 100 - 129 Near optimal. 130 - 159 Borderline High. 160 - 189 High. Total Cholesterol <200 desirable. 200 - 239 Borderline High. >/= 240 High. HDL < 40 Low >/=60 High. Triglycerides <150 desirable. <199 optimal. VlDL 5 - 40. HgbA1C <7%. BMI <25 Patient has diagnosis of Hyperlipidemia (ICD E78)?: Yes - Visit Date of Assessment:: 05/03/20 Session #:: 10 - Cholesterol/Lipids Determine presence & major risk factors that modify LDL goal: Hypertension or hypertensive medication, Age men > 45 years; women >/= 55 years Outcomes/Goals: Pt IDs own risk factors & lifestyle modifications by Session 10, Verbalizes symptoms of angina & response by session 3., Pt independently manages, Other Additional Outcomes/Goals: Intervention/Plan: Advocate for lipid panel cholesterol medication if applicable, Instruct on personal lipid levels & lipid goals/NCEP guidelines, Instruct on cholesterol, Other additional plan/int - Weight Mgt (Other Care) Height: 5 ft 4.5 in Weight:: 46.266 kg BMI: 17.2 Outcomes/Goals: Other additional outcomes/goals Intervention/Plan: Instruct on ideal BMI & set weight loss goal w/patient, Assist pt to ID & incorporate diet changes for weight loss by S9, Refer to Structured Weight Loss program as appropriate, Encourage goal of using 250- 300dcal per session for weight loss, Other additional plan/interventions 30 day Reassessments:: Progressing - Healthy Eating Habits Will attend diet classes:: No Outcomes/Goals:: Consume diet rich in vegs,fruits,whole grain/high fiber,fish,lean meat, Limit sat/trans fats,cholesterol & added salts & sugars, Other additional outcome/goals: Intervention/Plan:: Assess current eating habits, Other Additional plan/interventions 30-day Reassessments:: Progressing Medical- 30-Day Assessment - Visit Date of Eval: 05/03/20 Session #:: 10 - Medication Compliance Preventative Medication(s):: Clopidogrel/P2Y12 inhibit H/O mental health issues: depression, anxiety, or addiction?: No Doesn?t believe in the benefits of treatment?: No Believes medications are unnecessary or harmful?: No Has a concern about medication side effects?: No Expresses concern over the cost of medications?: No Outcomes/Goals: Verbalizes medications,desired effect & common side effects @ DC, Pt self-reports following medication regimen, Keeps card in wallet w/medications listed by DC, Other additional outcome/goals: Interventions/plans: Instruct on medication effects & side effects, Review medication list w/patient every two weeks, Instruct importance of taking meds as ordered & assist problem solving, Other additional 30-day Reassessments:: Progressing - Tobacco Use Tobacco Use: Non-smoker - Hypertension Hypertension Diagnosis:: Hypertension ICD-10 I10 [place] [employer] Hypertension Guidelines: [place] [employer] Hypertension Guidelines. Normal BP Less than 120/80. Elevated BP 120/80. Hypertension Stage 1: BP 130-139/80-89. Hypertesnion Stage 2: BP 140 or higher/90 or higher. Hypertension Crisis: BP higher than 180/120 Peak Exercise Blood Pressure:: 122/72 Outcomes/Goals: Able to verbalize/achieve optimal blood pressure <130/80, Incorporates diet changes & exercise for blood pressure control by DC, Other additional outcomes/goals Interventions/plan: Instruct on optimal blood pressure, hypertension & medications, Instruct on effects of sodium, alcohol, stress, exercise &hypertension, Other additional plan/interventions 30 day Reassessments:: Progressing - Tobacco Cessation Referral Smoking Cessation Referral:: No Individual Education/Counseling:: No Education Schedule Given:: Yes Psychosocial - 30-Day Assess - VIsit Date of Eval: 05/03/20 Session #:: 10 History of previous Mental disease:: No - Target Goals Target Goals: Assess presence or absence of depression. Using a valid screening tool, maximizes coping skills. Positive support system - Psychosocial Test Tool Used:: Vidible QOL Cardiac, PHQ-9 Questionnaire phq-9 Severity: Severity. 1-4 Minimal Depression. 5-9 Mild Depression. 10-14 Moderate Depression. 15-19 Moderately Sever Depression. 20-27 Severe Depression. Rule: - Outcomes/Goals: See list Psychosocial Outcomes/Goals:: ID's personal stressors & 2 strategies to manage stress by discharge, Other Additional outcome/goals: - Intervention/Plan: See List Interventions/Plan:: Assess stressors,coping strategies & signs of derpression on admission, Instruct/assist pt to develop coping & personal stress Mgt strategies, Refer to Behavioral Health if appropriate, Refer to Physician if appropriate, Instruct patient to recognize signs & symptoms of depression, Instruct patient to recog, Other additional plan/intervention - 30-day Reassessments: 30 day Reassessments:: Progressing Patient Health Questionnaire 30-Day Re-eval Assessment 1. Little interest or pleasure in doing things: Several days 2. Feeling down, depressed, or hopeless: Not at all 3. Trouble falling or staying asleep, or sleeping too much: Several days 4. Feeling tired or having little energy: Several days 5. Poor appetite or overeating: Not at all 6. Feeling bad about yourself -- or that you are a failure or have let yourself or your family down: Several days 7. Trouble concentrating on things, such as reading the newspaper or watching television: Several days 8. Moving or speaking so slowly that other people could have noticed. Or the opposite - being so fidgety or restless that you have been moving around a lot more than usual: Several days 9. Thoughts that you would be better off , or of hurting yourself in some way: Not at all How difficult have these problems made it for you to do your work, take care of things at home, or get along with other people?: Somewhat difficult Total Score: 6 Self-Efficacy 30-Day Re-eval Assessment We would like to know how confident you are in doing certain activities. Please select your confidence level for:: Select your confidence level for the following using the scale 1-10 where 1 is not at all confident and 10 is totally confident. Your score is the average of all 6 responses. Fatigue: How confident are you that you can keep the fatigue caused by your disease from interfering with the things you want to do? Select Number: 3 Physical Discomfort or Pain: How confident are you that you can keep the physical discomfort or pain of your disease from interfering with the things you want to do? Select Number: 6 Emotional Distress: How confident are you that you can keep the emotional distress caused by your disease from interfering with the things you want to do? Select Number: 3 Other Symptoms or Health Problems: How confident are you that you can keep other symptoms or health problems from interfering with the things you want to do? Select Number: 6 Different Tasks and Activities: How confident are you that you can do the different tasks and activities needed to manage your health condition so as to reduce your need to see a doctor? Select Number: 7 Medication: How confident are you that you can do things other than just taking medication to reduce how much your illness affects your everyday life? Select Number: 8 Total Score:: 5
[2020-05-03 14:28] VITALS: BP 100/50; BP 122/72; BMI 17.2
== END 2020-05-26 23:59 ==
LOC: CR 10:15
PROVIDERS: PCP Internal Medicine
DX: Z95.2 Presence of prosthetic heart valve (principal)
CPT/HCPCS: 93798

== ENCOUNTER 2020-06-26 10:15 | Outpatient (RCR) | payer MEDICARE, OTHER, SELFPAY ==
[2020-04-03 13:52] VITALS: BMI 17.2
[2020-05-03 14:28] VITALS: BMI 17.2
[2020-05-27 00:33] VITALS: BP 100/50; BP 122/72
--- NOTE | 2020-06-02 08:08 | PCM.CR.ITP ---
Exercise - 60-day Assessment - Visit Date of Eval: 06/02/20 Session #:: 23 - Physician Prescribed Exercise Modalities: Treadmill, Airdyne, NuStep Frequency: 3x/week for 12 weeks [36 sessions] Intensity: 60-80% of age predicted maximum heart rate reserve Current METSs:: 2.5 UNCHANGED Target Heart Rate:: 92-119 Current RPE:: 12-14 Maximum Excercise HR:: 91 Resting Blood Pressure: 124/52 Maximum Exercise Blood Pressure: 128/60 EKG Type: SR/LBBB WITH FREQUENT PVCs, VENT BIGEMNINY, VENT TRIGEMINY - Outcomes & Goals Goals:: Verbalizes understanding of THR, RPE & goal METS by session 6, Documents in home exercise log/reports 30 min aerobic 5 day/wk by DC, Demonstrates accurate pulse taking by DC - Intervention & Plan Exercise Program Goals: Instruct on personal THR & RPE, Instruct on MET level & personal MET goal, Show patient to take own pulse /validate performance until accurate, Instruct on home exercise - 30-day Reassessments 30 day Reassessments:: Progressing - Physical Activity Home Exercise Physical Activity - Home Exercise: Safe Exercise, Warm-up, Self-monitoring, Cool-Down, Home Exercise > 30 min Daily, Sitting Time <3 hours/daily - Outcomes & Goals Outcomes/Goals: Demonstrates correct Warm-up/exercise Cool-Down (S3) if = 2.5 METs, Verbalizes symptoms of exercise intolerance by Session 3 (S3), Demonstrate safe equipment use (S3) & follows exercise prescrition (6) - Intervention & Plan Plan/Intervention: Instruct warm-up & cool-down if exercising at > 2 METs, Instruct on symptoms of exercise intolerance & actions to take, Instruct & monitor on saf, Assess intial functional capacity & safety risk - 30-day Reassessments 30 day Reassessments:: Progressing Nutrition - 60-Day Assessment - Program Goals Nutrition Program Goals: LDL <100 optimal. 100 - 129 Near optimal. 130 - 159 Borderline High. 160 - 189 High. Total Cholesterol <200 desirable. 200 - 239 Borderline High. >/= 240 High. HDL < 40 Low >/=60 High. Triglycerides <150 desirable. <199 optimal. VlDL 5 - 40. HgbA1C <7%. BMI <25 Patient has diagnosis of Hyperlipidemia (ICD E78)?: Yes - Visit Date of Assessment:: 06/02/20 Session #:: 23 - Cholesterol/Lipids Determine presence & major risk factors that modify LDL goal: Hypertension or hypertensive medication, Age men > 45 years; women >/= 55 years Outcomes/Goals: Pt IDs own risk factors & lifestyle modifications by Session 10, Verbalizes symptoms of angina & response by session 3., Pt independently manages Intervention/Plan: Instruct on personal lipid levels & lipid goals/NCEP guidelines, Instruct on cholesterol Referral to dietitian:: No - PATIENT DECLINED 30-day Reassessments:: Progressing - Diabetes (Other Core Measures) Diabetes Type: Not Applicable - Weight Mgt (Other Care) Not Applicable: No Height: 5 ft 4.5 in Weight:: 107 lb 8 oz BMI: 18.1 Diagnosis Overweight/Obesity BMI> 30% ICD-10 E66: No Diagnosis High BMI/Morbid Obesity BMI> 35% ICD-10 Z68: No Outcomes/Goals: Pt sets, maintains & shows weight loss goal & trend during rehab Intervention/Plan: Instruct on ideal BMI & set weight loss goal w/patient - EATING 5 SMALL MEALS DAILY AND SUPPLEMENTS 30 day Reassessments:: Progressing - Healthy Eating Habits Will attend diet classes:: Yes Outcomes/Goals:: Consume diet rich in vegs,fruits,whole grain/high fiber,fish,lean meat, Limit sat/trans fats,cholesterol & added salts & sugars Intervention/Plan:: Assess current eating habits 30-day Reassessments:: Progressing Medical- 60-Day Assessment - Visit Date of Eval: 06/02/20 Session #:: 23 - Medication Compliance Preventative Medication(s):: Aspirin, Statin/lipid, Beta kyree H/O mental health issues: depression, anxiety, or addiction?: No Doesn?t believe in the benefits of treatment?: No Believes medications are unnecessary or harmful?: No Has a concern about medication side effects?: No Expresses concern over the cost of medications?: No Outcomes/Goals: Verbalizes medications,desired effect & common side effects @ DC, Pt self-reports following medication regimen, Keeps card in wallet w/medications listed by DC Interventions/plans: Instruct on medication effects & side effects, Review medication list w/patient every two weeks, Instruct importance of taking meds as ordered & assist problem solving 30-day Reassessments:: Progressing - Tobacco Use Tobacco Use: Non-smoker - Hypertension Hypertension Diagnosis:: Hypertension ICD-10 I10 Resting Blood Pressure:: 124/52 - CONTROLLED [place] [employer] Hypertension Guidelines: [place] [employer] Hypertension Guidelines. Normal BP Less than 120/80. Elevated BP 120/80. Hypertension Stage 1: BP 130-139/80-89. Hypertesnion Stage 2: BP 140 or higher/90 or higher. Hypertension Crisis: BP higher than 180/120 Peak Exercise Blood Pressure:: 124/52 Outcomes/Goals: Able to verbalize/achieve optimal blood pressure <130/80, Incorporates diet changes & exercise for blood pressure control by DC Interventions/plan: Instruct on optimal blood pressure, hypertension & medications, Instruct on effects of sodium, alcohol, stress, exercise &hypertension 30 day Reassessments:: Progressing - Tobacco Cessation Referral Smoking Cessation Referral:: No Individual Education/Counseling:: No Education Schedule Given:: Yes Psychosocial - 60-Day Assess - VIsit Date of Eval: 06/02/20 Session #:: 23 Not Applicable: Yes History of previous Mental disease:: No - Target Goals Target Goals: Assess presence or absence of depression. Using a valid screening tool, maximizes coping skills. Positive support system - Psychosocial Test Tool Used:: Manolo Gill QOL Cardiac, PHQ-9 Questionnaire phq-9 Severity: Severity. 1-4 Minimal Depression. 5-9 Mild Depression. 10-14 Moderate Depression. 15-19 Moderately Sever Depression. 20-27 Severe Depression. Rule: - Referral to Behavioral Health PS - Interventions: Yes Attend Stress Management Classes, No Referral to Behavioral Health if PHQ-9 score >9:, No Referral to [facility], No Referral to Physician if PHQ-9 if score is 5-9: - Outcomes/Goals: See list Psychosocial Outcomes/Goals:: ID's personal stressors & 2 strategies to manage stress by discharge - Intervention/Plan: See List Interventions/Plan:: Assess stressors,coping strategies & signs of derpression on admission, Instruct/assist pt to develop coping & personal stress Mgt strategies, Instruct patient to recognize signs & symptoms of depression, Instruct patient to recog - 30-day Reassessments: 30 day Reassessments:: Progressing Patient Health Questionnaire 60-Day Re-eval Assessment 1. Little interest or pleasure in doing things: Several days 2. Feeling down, depressed, or hopeless: Not at all 3. Trouble falling or staying asleep, or sleeping too much: Several days 4. Feeling tired or having little energy: Several days 5. Poor appetite or overeating: Not at all 6. Feeling bad about yourself -- or that you are a failure or have let yourself or your family down: Several days 7. Trouble concentrating on things, such as reading the newspaper or watching television: Several days 8. Moving or speaking so slowly that other people could have noticed. Or the opposite - being so fidgety or restless that you have been moving around a lot more than usual: Several days 9. Thoughts that you would be better off , or of hurting yourself in some way: Not at all How difficult have these problems made it for you to do your work, take care of things at home, or get along with other people?: Somewhat difficult Total Score: 6 Self-Efficacy 60-Day Re-eval Assessment We would like to know how confident you are in doing certain activities. Please select your confidence level for:: Select your confidence level for the following using the scale 1-10 where 1 is not at all confident and 10 is totally confident. Your score is the average of all 6 responses. Fatigue: How confident are you that you can keep the fatigue caused by your disease from interfering with the things you want to do? Select Number: 3 Physical Discomfort or Pain: How confident are you that you can keep the physical discomfort or pain of your disease from interfering with the things you want to do? Select Number: 6 Emotional Distress: How confident are you that you can keep the emotional distress caused by your disease from interfering with the things you want to do? Select Number: 4 Other Symptoms or Health Problems: How confident are you that you can keep other symptoms or health problems from interfering with the things you want to do? Select Number: 7 Different Tasks and Activities: How confident are you that you can do the different tasks and activities needed to manage your health condition so as to reduce your need to see a doctor? Select Number: 8 Medication: How confident are you that you can do things other than just taking medication to reduce how much your illness affects your everyday life? Select Number: 9 Total Score:: 6
[2020-06-02 08:16] VITALS: BP 124/52; BMI 18.1
== END 2020-06-26 23:59 ==
LOC: CR 10:15
PROVIDERS: PCP Internal Medicine
DX: Z95.2 Presence of prosthetic heart valve (principal)
CPT/HCPCS: 93798

== ENCOUNTER 2020-07-10 10:15 | Outpatient (RCR) | payer MEDICARE, OTHER, SELFPAY ==
[2020-04-03 13:52] VITALS: BMI 17.2
[2020-06-02 08:16] VITALS: BMI 18.1
[2020-06-27 00:36] VITALS: BP 124/52
--- NOTE | 2020-07-07 15:19 | CR.ITP_ITS ---
Diagnosis - General Information Personal Learning Style:: Written Barriers to Learning: Hearing Impairment, Vision Impairment Stage of change r/t lifestyle modifications:: Action Gave educational material for:: Treating Heart Disease, Emotions & Heart Disease, Stress Management & Relaxation, Sleep Disorders & Heart Disease, How The Heart Works, What it means to have Heart Disease, How Coronary Artery Disease is Diagnosed, Heart Procedures, What Heart Medications Do, Risk Factors & Modifications, Living an Active Life, Nutrition - Education/Goals Individual Counseling: Initial Assessment: Abnormal Cholesterol Levels, High Blood Pressure Cardiac Rehabilitation Goals: 1. Maintain the individual as the primary focus of care. 2. To improve the patient's quality of life. 3. Identification of cardiac risk factors and provide cardiac risk factor management. 4. Enhance the psychosocial status of the patient. 5. Reconditioning enough to allow the patient to resume customary activities. 6. Control symptoms of cardiac disease Personal Goals: Discharge Reassessment: Improve management of stress and emotions - 4, Improve energy level - 4, Get back to work, or to resume activities faster - 4, Improve knowledge of cardiac disease - 4, Improve muscle strength and endurance - 4, Improve diet and eating habits (eat healthier) - 4, Control risk factors (learn risk factor modification) - 4 Scale for measuring improvement of personal goals: Enter appropriate number in Comments. 2 = Unchanged. 3 = Slightly Better. 4 = Moderate Improvement. 5 = Met my Goal - Diagnosis & Disease Process Outcomes/Goals: Pt IDs own risk factors & lifestyle modifications by Session 10, Verbalizes symptoms of angina & response by session 3., Pt independently manages Plan/Interventions: Assist Pt to ID & engage in lifestyle modification to reduce CVD risk, Instruct on individual risk factors, Review symptoms of angina & emergency actions, Review secondary diagnosis & identify educational needs. 30 day Reassessments:: Progressing 30 day Reassessments:: Progressing 30 day Reassessments:: Progressing 30 day Reassessments:: Progressing Final Reassessments:: Met - Safety Referral to Physical Therapy: No Referral to [facility] Case Management: No Fall Risk Assessed:: Yes Assistive Devices:: None Exercise - Final/Discharge - Visit Date of Eval: 07/07/20 Session #:: 35 - Physician Prescribed Exercise Modalities: Treadmill, Airdyne, NuStep Frequency: 3x/week for 12 weeks [36 sessions] Intensity: 60-80% of age predicted maximum heart rate reserve Current METSs:: 2.5 INCREASE FROM 2.0; PATINET WEAK AND FRAIL FROM OTHER MEDICAL CONDITIONS Target Heart Rate:: 92-119 Target RPE 12-16:: 12-16 Current RPE:: 13-14 Maximum Excercise HR:: 86 Resting Blood Pressure: 116/40 Maximum Exercise Blood Pressure: 158/64 EKG Type: SR to ST WITH OCCAS. PVCs, BIGEMINY, VENT COUPLET, RARE PACs - Outcomes & Goals Goals:: Verbalizes understanding of THR, RPE & goal METS by session 6, Documents in home exercise log/reports 30 min aerobic 5 day/wk by DC, Demonstrates accurate pulse taking by DC - Intervention & Plan Exercise Program Goals: Instruct on personal THR & RPE, Instruct on MET level & personal MET goal, Show patient to take own pulse /validate performance until accurate, Instruct on home exercise - 30-day Reassessments 30 day Reassessments:: Progressing - Physical Activity Home Exercise Physical Activity - Home Exercise: Safe Exercise, Warm-up, Self-monitoring, Cool-Down, Home Exercise > 30 min Daily, Sitting Time <3 hours/daily - Outcomes & Goals Outcomes/Goals: Demonstrates correct Warm-up/exercise Cool-Down (S3) if = 2.5 METs, Verbalizes symptoms of exercise intolerance by Session 3 (S3), Demonstrate safe equipment use (S3) & follows exercise prescrition (6) - Intervention & Plan Plan/Intervention: Instruct warm-up & cool-down if exercising at > 2 METs, Instruct on symptoms of exercise intolerance & actions to take, Instruct & monitor on saf, Assess intial functional capacity & safety risk - 30-day Reassessments 30 day Reassessments:: Met Nutrition - Final Assessment - Program Goals Nutrition Program Goals: LDL <100 optimal. 100 - 129 Near optimal. 130 - 159 Borderline High. 160 - 189 High. Total Cholesterol <200 desirable. 200 - 239 Borderline High. >/= 240 High. HDL < 40 Low >/=60 High. Triglycerides <150 desirable. <199 optimal. VlDL 5 - 40. HgbA1C <7%. BMI <25 - Visit Date of Assessment:: 07/07/20 Session #:: 35 - Cholesterol/Lipids Triglycerides (mg/dL): 0 - NO RECENT LABS AVAILABLE Determine presence & major risk factors that modify LDL goal: Hypertension or hypertensive medication, Age men > 45 years; women >/= 55 years Outcomes/Goals: Pt IDs own risk factors & lifestyle modifications by Session 10, Verbalizes symptoms of angina & response by session 3., Pt independently manages Intervention/Plan: Instruct on personal lipid levels & lipid goals/NCEP guidelines, Instruct on cholesterol 30-day Reassessments:: Met - Diabetes (Other Core Measures) Diabetes Type: Not Applicable - Weight Mgt (Other Care) Not Applicable: Yes Weight:: 109 lb BMI (Report if calculated above): 16.5 Diagnosis Overweight/Obesity BMI> 30% ICD-10 E66: No Diagnosis High BMI/Morbid Obesity BMI> 35% ICD-10 Z68: No Outcomes/Goals: Pt sets, maintains & shows weight loss goal & trend during rehab Intervention/Plan: Instruct on ideal BMI & set weight loss goal w/patient - Healthy Eating Habits Will attend diet classes:: Yes Outcomes/Goals:: Consume diet rich in vegs,fruits,whole grain/high fiber,fish,lean meat, Limit sat/trans fats,cholesterol & added salts & sugars, Other additional outcome/goals: - INCREASE SMALLER MEALS, USE OF SUPPLEMTNS HIGH IN PROTEIN FOR WEIGHT GAIN Intervention/Plan:: Assess current eating habits 30-day Reassessments:: Progressing - Education Gave educational materials for:: Healthy eating Medical - Final Assessment - Visit Date of Eval: 07/07/20 Session #:: 35 - Medication Compliance Preventative Medication(s):: Aspirin, KHADIJAH inhibitor, Statin/lipid, Beta kyree H/O mental health issues: depression, anxiety, or addiction?: No Doesn?t believe in the benefits of treatment?: No Believes medications are unnecessary or harmful?: No Has a concern about medication side effects?: No Expresses concern over the cost of medications?: No Outcomes/Goals: Verbalizes medications,desired effect & common side effects @ DC, Pt self-reports following medication regimen, Keeps card in wallet w/medica tions listed by DC Interventions/plans: Instruct on medication effects & side effects, Review medication list w/patient every two weeks, Instruct importance of taking meds as ordered & assist problem solving 30-day Reassessments:: Met - Tobacco Use Tobacco Use: Non-smoker - Hypertension Resting Blood Pressure:: 116/40 [place] [employer] Hypertension Guidelines: [place] [employer] Hypertension Guidelines. Normal BP Less than 120/80. Elevated BP 120/80. Hypertension Stage 1: BP 130-139/80-89. Hypertesnion Stage 2: BP 140 or higher/90 or higher. Hypertension Crisis: BP higher than 180/120 Peak Exercise Blood Pressure:: 158/64 30 day Reassessments:: Progressing - Tobacco Cessation Referral Smoking Cessation Referral:: No Individual Education/Counseling:: No Education Schedule Given:: Yes Psychosocial - Final Assessmen - VIsit Date of Eval: 07/07/20 Session #:: 35 Not Applicable: Yes History of previous Mental disease:: No - Target Goals Target Goals: Assess presence or absence of depression. Using a valid screening tool, maximizes coping skills. Positive support system - Psychosocial Test Tool Used:: [employer] QOL Cardiac, PHQ-9 Questionnaire phq-9 Severity: Severity. 1-4 Minimal Depression. 5-9 Mild Depression. 10-14 Moderate Depression. 15-19 Moderately Sever Depression. 20-27 Severe Depression. Rule: - Referral to Behavioral Health PS - Interventions: Yes Attend Stress Management Classes, No Referral to Behavioral Health if PHQ-9 score >9:, No Referral to [facility], No Referral to Physician if PHQ-9 if score is 5-9: - Outcomes/Goals: See list Psychosocial Outcomes/Goals:: ID's personal stressors & 2 strategies to manage stress by discharge - Intervention/Plan: See List Interventions/Plan:: Assess stressors,coping strategies & signs of derpression on admission, Instruct/assist pt to develop coping & personal stress Mgt strategies, Instruct patient to recognize signs & symptoms of depression, Instruct patient to recog - 30-day Reassessments: 30 day Reassessments:: Progressing Patient Health Questionnaire Discharge Assessment 1. Little interest or pleasure in doing things: Not at all 2. Feeling down, depressed, or hopeless: Several days 3. Trouble falling or staying asleep, or sleeping too much: Several days 4. Feeling tired or having little energy: Several days 5. Poor appetite or overeating: More than half the days 6. Feeling bad about yourself -- or that you are a failure or have let yourself or your family down: Not at all 7. Trouble concentrating on things, such as reading the newspaper or watching television: Not at all 8. Moving or speaking so slowly that other people could have noticed. Or the opposite - being so fidgety or restless that you have been moving around a lot more than usual: Several days 9. Thoughts that you would be better off , or of hurting yourself in some way: Not at all How difficult have these problems made it for you to do your work, take care of things at home, or get along with other people?: Somewhat difficult Total Score: 6 Self-Efficacy Discharge Assessment We would like to know how confident you are in doing certain activities. Please select your confidence level for:: Select your confidence level for the following using the scale 1-10 where 1 is not at all confident and 10 is totally confident. Your score is the average of all 6 responses. Fatigue: How confident are you that you can keep the fatigue caused by your disease from interfering with the things you want to do? Select Number: 8 Physical Discomfort or Pain: How confident are you that you can keep the physical discomfort or pain of your disease from interfering with the things you want to do? Select Number: 8 Emotional Distress: How confident are you that you can keep the emotional distress caused by your disease from interfering with the things you want to do? Select Number: 8 Other Symptoms or Health Problems: How confident are you that you can keep other symptoms or health problems from interfering with the things you want to do? Select Number: 8 Different Tasks and Activities: How confident are you that you can do the different tasks and activities needed to manage your health condition so as to reduce your need to see a doctor? Select Number: 8 Medication: How confident are you that you can do things other than just taking medication to reduce how much your illness affects your everyday life? Select Number: 8 Total Score:: 8 Nutrition Survey - Nutrition Survey Instructions Scoring Instructions: Scoring is as follows: Yes = 1 points. No = 0 point. Patient score that is >/=12 is considered to be at potential nutritional risk and could benefit from a referral to a registered dietitian. - Nutrition Survey Discharge Have you lost >10 lbs over the past 2 months without trying?: No Are you following a special diet at home for diabetes, low fat, or low salt?: Yes Are you interested in meeting with a dietitian for help understanding your diet?: No Do you eat less than 3 meals a day?: No Do you eat fatty meats (cuevas, sausage, ribs, etc), fried foods, desserts, large amounts of salad dressings, margarine, butter, or cheese most days?: No Do you have food allergies? [Enter types in comment field]: No Do you eat in restaurants more than 3 times a week?: No Do you season food with salt, seasoning salt, or garlic salt?: No Do you used canned, boxed, frozen meals, or soups, seasoning packets?: No Total Score:: 1
[2020-07-07 15:41] VITALS: BP 116/40; BP 158/64; BMI 16.5
== END 2020-07-26 23:59 ==
LOC: CR 10:15
PROVIDERS: PCP Internal Medicine
DX: Z95.2 Presence of prosthetic heart valve (principal)
CPT/HCPCS: 93798

== ENCOUNTER → 2023-03-11 | Outpatient (CLI) | payer MEDICARE, OTHER, SELFPAY ==
[2020-06-02 08:16] VITALS: BMI 18.1
[2023-03-11 12:34] LABS: Erythrocyte Sedimentation Rate 12 mm/hr (0-30)
[2023-03-11 12:37] LABS: Absolute Neutrophil Count 3.8 X10^3/uL (2.0-7.7); Basophil# 0.03 X10^3/uL; Basophil% 0.6 % (0-1); Eosinophil# 0.16 X10^3/uL; Hematocrit 38.8 % (37-47); Hemoglobin 12.7 g/dL (12.0-15.0); Lymphocyte % 11.4 % (19-41); Mean Corp Hgb Conc 32.7 g/dL (32-36); Mean Corpuscular Hgb 31.5 pg (27.0-32.0); Mean Corpuscular Volume 96.3 fL (81-99); Mean Platelet Vol. 9.1 fl (6.2-12.0); Monocyte# 0.62 X10^3/uL; Monocyte% 11.8 % (0-10); NRBC Flagged by Analyzer 0 % (0-5); Neutrophil # 3.83 X10^3/uL (2.7-7.7); Neutrophil % 72.6 % (47-70); POSITIVE DIFFERENTIAL YES; Platelet Count 281 K/mm3 (150-450); RBC Distribution Width CV 13.6 % (11.6-14.6); RBC Distribution Width SD 48.5 fl (35.1-43.9); Red Blood Count 4.03 M/mm3 (4.2-5.4); White Blood Count 5.3 K/mm3 (4.4-11.0)
[2023-03-11 12:59] LABS: Differential Indicated SCAN CRITERIA MET
[2023-03-11 13:04] LABS: CRP < 2.90 mg/L (0.0-3.0)
[2023-03-11 18:56] LABS: Differential Comment SCANNED
== END | disposition home or self-care (01) ==
PROVIDERS: PCP Internal Medicine; Referring Provider Ophthalmology; Visit Provider Ophthalmology
DX: R51.9 Headache, unspecified (principal)
CPT/HCPCS: 36415; 85025; 85652; 86140

== ENCOUNTER 2023-04-07 08:05 | Day surgery (SDC) | payer MEDICARE, OTHER, SELFPAY ==
[2020-06-02 08:16] VITALS: BMI 18.1
[2023-04-07] VITALS (7 sets, daily range): BP systolic 104–121; BP diastolic 40–56; PULSE 57–64; RESP 14–16; TEMP 36.8–37.3; O2SAT 95–99; BMI 19.3
[2023-04-07] MEDS: Lactated Ringers 1,000 ML 15 ML IV (08:54)
--- NOTE | 2023-04-07 10:03 | HP.PCM_ITS ---
History and Physical Date of Admission: 04/07/23 Intake Vital Signs ? 04/03/2314:51 Height 5 ft 4 in Weight: 116 lb 8 oz BMI 20.0 BP 108/61 Blood Pressure Location Lt radial Position Sitting Respiration 18 Pulse 62 Pulse Source Monitor Temp 97.9 F Temp Source Temporal Pulse Oximetry (%) 97 Oxygen Delivery Method room air Intake Visit Reasons:?TEMPORAL ARTERY BIOPSY Chief Complaint: temporal artery bx consult [employer] Required: No Is patient in pain?: Yes Allergies celecoxib [From Celebrex] Allergy (Verified 04/03/23 14:54) NEEDS FOLLOW-UPcolestipol Allergy (Verified 04/03/23 14:54) Unknownaspirin Adverse Reaction (Verified 04/03/23 14:54) Upset Stomachdoxycycline Adverse Reaction (Verified 04/03/23 14:54) Unknownmeloxicam Adverse Reaction (Verified 04/03/23 14:54) Upset Stomachmetoclopramide [From Reglan] Adverse Reaction (Verified 04/03/23 14:54) Otherniacin Adverse Reaction (Verified 04/03/23 14:54) OtherNSAIDS (Non-Steroidal Anti-Inflamma Adverse Reaction (Verified 04/03/23 14:54) Upset Stomach Medications albuterol sulfate 90 mcg/actuation aerosol inhaler 2 puff inhalation Q4H PRN PRN Sob &/Or Wheezing 02/27/20 [History Confirmed 04/03/23] brinzolamide 1 %-brimonidine 0.2 % eye drops,suspension 1 drp RIGHT EYE BID eyes 02/27/20 [History Confirmed 04/03/23] calcium carbonate 600 mg calcium (1,500 mg) tablet 600 mg PO BID replacement 02/27/20 [History Confirmed 04/03/23] cholecalciferol (vitamin D3) 25 mcg (1,000 unit) tablet 2,000 unit PO DAILY replacement 02/27/20 [History Confirmed 04/03/23] clopidogrel 75 mg tablet 75 mg PO DAILY heart 02/27/20 [History Confirmed 04/03/23] ferrous sulfate 325 mg (65 mg iron) tablet 2 tab PO BID replacement 02/27/20 [History Confirmed 04/03/23] fluticasone 100 mcg-salmeterol 50 mcg/dose blistr powdr for inhalation 1 puff IH BID SOB 02/27/20 [History Confirmed 04/03/23] fzdqlh-dgsrgyif-dvcxldb 36,000-114,000-180,000 unit capsule,delay rel 2 ea PO TID gut health 02/27/20 [History Confirmed 04/03/23] metoprolol tartrate 50 mg tablet 25 mg PO BID heart 02/27/20 [History Confirmed 04/03/23] metronidazole 0.75 % (37.5 mg/5 gram) vaginal gel 70 applic topical BID skin 02/27/20 [History Confirmed 04/03/23] montelukast 10 mg tablet 10 mg PO DAILY allergies 02/27/20 [History Confirmed 04/03/23] multivitamin with minerals 1 ea PO DAILY replacement 02/27/20 [History Confirmed 04/03/23] nitroglycerin 0.4 mg sublingual tablet 0.4 mg sublingual PRN PRN CHEST PAIN 02/27/20 [History Confirmed 04/03/23] pantoprazole 40 mg tablet,delayed release 40 mg PO BID stomach health 02/27/20 [History Confirmed 04/03/23] pimecrolimus 1 % topical cream 1 applicatio TP BID PRN Rash/Topical Irritation 02/27/20 [History Confirmed 04/03/23] rosuvastatin 10 mg tablet 10 mg PO DAILY cholesterol 02/27/20 [History Confirmed 04/03/23] acetaminophen 325 mg tablet 325 - 650 mg PO Q6H PRN Pain Or Fever 04/03/20 [History Confirmed 04/03/23] sennosides 8.6 mg-docusate sodium 50 mg tablet 1 ea PO PRN Constipation 04/03/20 [History] diltiazem HCl 120 mg capsule,extended release 24 hr 120 mg PO DAILY 04/03/23 [History Confirmed 04/03/23] dorzolamide 2 % eye drops 1 drp ophthalmic (eye) TID 04/03/23 [History Confirmed 04/03/23] duloxetine 30 mg capsule,delayed release 30 mg PO DAILY 04/03/23 [History Confirmed 04/03/23] fluorometholone 0.1 % eye drops,suspension 1 drp ophthalmic (eye) Q6H 04/03/23 [History Confirmed 04/03/23] PFSH Medical History?(Updated 04/03/23 @ 15:[address] 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 Hx of left bundle branch block Hypertension Hypertrophic obstructive cardiomyopathy (HOCM) Iron deficiency Irritable bowel syndrome (IBS) Mitral valve prolapse Mixed hyperlipidemia Nodular calcific aortic valve stenosis PAPILARY MUSCLE REORIENTATION Paroxysmal atrial fibrillation Peripheral arterial disease Pulmonary nodule Spinal stenosis of lumbar region TIA (transient ischemic attack) Surgical History?(Updated 04/03/23 @ 15:09 by Natalia Abdi) History of appendectomy History of cholecystectomy History of detached retina repair Hx of tubal ligation S/P AVR (aortic valve replacement) and aortoplasty Status post ventricular septal myectomy Family History?(Updated 04/03/23 @ 15:05 by Natalia Abdi) Father Heart disease CVA (cerebral vascular accident)Mother Heart disease HypertensionSister Kidney disease Osteoporosis Social History Smoking Status:? Never smoker HPI HPI HPI: Patient is an 83-year-old female here for left temporal headaches and vision changes.? Patient was sent here for temporal artery biopsy.? She is currently on steroids. ROS General General: Yes fatigue; No weight change, appetite, colon cancer, breast cancer or weakness HEENT HEENT: Yes eye injury, eye surgery and swollen glands; No difficulty swallowing or hoarseness Endo Endocrine: No thyroid disease, diabetes mellitus, thyroid cancer, Hair loss, heat intolerance or cold intolerance Skin Skin: No rash or changing moles Breast Breast: No left breast lump, right breast lump, nipple discharge, breast pain, abnormal mammogram, abnormal US or breast enlargement Musc Musculoskeletal: Yes arthritis; No back problems, rheumatoid arthritis, gout or joint pain Cardio Cardiovascular: Yes murmur, heart disease and high blood pressure; No pacemaker, atrial fibrillation, heart attack, heart stent, palpitations, shortness of breat with exertion or chest pain Psych Psychiatric: Yes anxiety; No depression or hearing voices Resp Respiratory: Yes shortness of breath, No sleep apnea, Yes cough, No COPD, No asthma, No emphysema and No wheezing Gastro Gastrointestinal: No abdominal pain, No nausea or vomiting, No diarrhea, No constipation, No blood in stool, Yes acid reflux, Yes hemorrhoids, No ulcers, Yes gallbladder problem and No black,tarry stools Nikita Hematologic: Yes blood thinners, No blood disorders, No bleeding, No anemia and No blood clots Neuro Neurologic: No system reviewed and no additional complaints, except as documented, No as per HPI, No abnormal gait, No abnormal hearing, No abnormal movements, No abnormal speech, No behavioral changes, No burning sensations, No confusion, No convulsions, No disequilibrium, No dizziness, No localized weakness, No frequent falls, No headache(s), No lack of coordination, No loss of vision, No memory loss, No numbness, No other visual disturbances, No radicular pain, No restless legs, No sensory deficit, No syncope, No tingling, No tremor(s), No weakness and No other Exam Const General: cooperative Orientation: alert and oriented x3 HENMT Head: normal to inspection Neck Neck: normal visual inspection and full ROM Chest Chest palpation & inspection: normal inspection of the chest Resp Effort & Inspection: normal respiratory effort Auscultation: clear to auscultation bilaterally Cardio Rate: regular rate Rhythm: regular rhythm GI Inspection: non-distended Palpation: soft and nontender Skin General: no rashes or lesions noted Neuro General: patient alert and patient oriented x3 Extrem General: full ROM Psych Appearance: grossly normal Mental Status: mental status grossly normal Assessment and Plan Assessment and Plan (1) Left temporal headache: ?Status:?Acute ?Plan: Patient has a left temporal headache and left vision changes.? She was sent here for left temporal artery biopsy.? I discussed the procedure with her in detail.? I discussed the risks of bleeding and infection and nerve injury.? Patient or stands the risks and is willing to proceed.? She is started holding her Plavix yesterday and I will try to do her biopsy on Friday. Quoc Matias MD Pager: [facility] [address] [place] [address], [address] [place] [address] Office: I have examined the patient and the H&P has been reviewed. There are no clinical changes since date of exam.
[2023-04-07] MEDS: Lubricating Jelly 60 GM Tube 30 GM (10:20)
[2023-04-07] MEDS: Cefazolin 2 GM in 0.9% Normal Saline 100 ML IV (10:26)
[2023-04-07] MEDS: Lidocaine 1% (20 ml mdv) 20 ML Vial (10:52)
--- NOTE | 2023-04-07 11:00 | TEM_PTH ---
PATIENT: PIO MELGAR LOC: [facility] [place] U#:[id number] AGE/SX: 83/F ROOM: RE04/07/[address]: Dr. Quoc Matias MD : 1940 BED: DIS: 04/07/2023 SPEC #: [id number] RECD: 04/07/23 12:53 STATUS: KAREN BENTLEY #: [id number] ANITA: 04/07/23 11:[address]: Quoc Matias DEPT: SURGICAL PATHOLOGY RECD BY: Crystal Jimenes ENTERED: 04/07/23 13:31 SP TYPE: TEMPORAL OTHR DR: Dr. Anjum Henriquez MD Tissues: Temporal region Procedures: Elastin Stain (control) Special Stain Group II Surgery Specimen Level IV HEADER OPERATION: Temporal artery biopsy PRE-OP DIAGNOSIS: Left temporal headache TISSUE SUBMITTED: Temporal artery MICROSCOPIC DIAGNOSIS Temporal artery, biopsy: Negative for giant cell arteritis. Intimal hyperplasia and medial calcifications. See comment. DAYTON:marco 04/08/2023 COMMENT Elastin stain with matched control is used in the evaluation of the specimen. Clinical correlation and appropriate follow up are necessary. MICROSCOPIC DESCRIPTION Slides are reviewed. GROSS DESCRIPTION Received in fixative is one container labeled with the patient's name and designated left temporal artery biopsy. The specimen consists of a tubular piece of tran-pink soft tissue measuring 2.0 cm in length and 0.2 cm in diameter. The specimen is totally submitted in one cassette. / DAYTON:marco 04/07/2023 TC:5 CPT: 59688, 36398
--- NOTE | 2023-04-07 11:09 | PCM.OPRPT ---
Report of Operation Date of Procedure: 04/07/23 Pre-Operative Diagnosis: Left temporal headache and vision changes Post-Operative Diagnosis: Same Surgery/Procedure Performed:: Left temporal artery biopsy Specimen's removed: Left temporal artery Description of Procedure: Patient was brought back to the operating room and MAC anesthesia was induced. Hair was clipped and the area was inspected. The patient had ultrasound identification of the left temporal artery and the arteries course was marked. Next the left confucianist was prepped and draped in usual sterile fashion. Local anesthetic was used to inject the incision. Next scalpel was used to make an incision and deepened into the subcutaneous tissue. Electrocautery was used for hemostasis. The fascia was sharply incised using scissors and the artery was identified. Its course was dissected free. It was clipped proximally and distally. Next all of his tributaries were clipped as well. It was then sharply removed and sent for pathology. There was no other pulsatile vessel in the area. The incision was irrigated and suctioned dry. The incision was closed with interrupted and running 4-0 Monocryl suture. Dermabond was applied. Patient was awoken and taken to PACU in stable condition. Admit VTE Documentation VTE Mechan Device Prophylaxis: SCD's
--- NOTE | 2023-04-07 11:10 | DCINST_ITS ---
Discharge Instructions Diet Discharge Diet: No restrictions Activity Discharge Activity: Return to Normal Activity and May Shower Dressing / Incision Call your doctor if your incision/area has: Continuous Slow Oozing, Sudden Inc reased Bleeding, Increased Pain/ Swelling, Increased Redness, Foul Smelling Discharge and Swelling at the incision site Call your doctor if you observe: Fever of 101 or Higher Cleanse incision/area with: Soap & Water Additional Dressing/Incision Instructions:: Ibuprofen and Tylenol for pain. Resume Plavix on Friday evening. Follow Up Care Please Follow Up With: Quoc Matias MD When: Please call to schedule 2 week follow up appointment. [phone] Test Results: Test results from this visit will be discussed in further detail at your follow- up appointment, if applicable. Discharge Plan Admission Attending Provider: Quoc Matias Primary Care Provider: Anjum Henriquez Discharge Orders/Prescriptions Prescriptions: No Action diltiazem HCl 120 mg capsule,extended release 24hr 120 mg PO DAILY fluorometholone 0.1 % drops,suspension 1 drp ophthalmic (eye) Q6H dorzolamide 2 % drops 1 drp ophthalmic (eye) TID duloxetine 30 mg capsule,delayed release(DR/EC) 30 mg PO DAILY multivitamin with minerals 1 EACH tablet 1 ea PO DAILY cholecalciferol (vitamin D3) 1,000 UNIT tablet 2,000 unit PO DAILY pimecrolimus 30 GM cream 1 applicatio TP BID PRN (Reason: Rash/Topical Irritation) clopidogrel 75 MG tablet 75 mg PO DAILY calcium carbonate 600 MG tablet 600 mg PO BID pantoprazole 40 MG tablet 40 mg PO BID ferrous sulfate 325 MG tablet 2 tab PO BID nitroglycerin 0.4 MG tablet, sublingual 0.4 mg sublingual PRN PRN (Reason: CHEST PAIN) fluticasone propion-salmeterol 1 EACH blister with device 1 puff IH BID albuterol sulfate 1 INHALER inhaler 2 puff inhalation Q4H PRN PRN (Reason: Sob &/Or Wheezing) Creon 1 EACH capsule,delayed release(DR/EC) 2 ea PO TID Rx Instructions: 2 CAPS TID WITH MEALS, 1 CAP WITH EACH SNACK metoprolol tartrate 50 MG tablet 25 mg PO BID acetaminophen 325 MG tablet 325 - 650 mg PO Q6H PRN (Reason: Pain Or Fever) Referrals / Follow Up: Anjum Henriquez MD [Primary Care Provider] - Disposition Disposition (needs filled in before D/C Order can be placed): Home, Self Care
== END 2023-04-07 12:43 | disposition home or self-care (01) ==
LOC: SDC 08:10 → AC 08:12
PROVIDERS: PCP Internal Medicine; Referring Provider Surgery; Visit Provider Surgery
PROC: (CPT 37609; principal; 2023-04-07 10:45)
DX: R51.9 Headache, unspecified (principal); I27.20 Pulmonary hypertension, unspecified; H53.9 Unspecified visual disturbance; I25.10 Atherosclerotic heart disease of native coronary artery without angina pectoris; R05.3 Chronic cough; E78.00 Pure hypercholesterolemia, unspecified; I10 Essential (primary) hypertension; Z86.73 Personal history of transient ischemic attack (TIA), and cerebral infarction without residual deficits; Z95.2 Presence of prosthetic heart valve; I44.7 Left bundle-branch block, unspecified; K21.9 Gastro-esophageal reflux disease without esophagitis
CPT/HCPCS: 37609; 00352; 88305; 88313; A4648; J7120; J2405